=== PATIENT | male | born 1950 | race Caucasian/White ===

== ENCOUNTER 2018-08-05 12:10 | Day surgery (SDC) | payer MEDICARE, MEDICAID, SELFPAY ==
[2018-08-05] VITALS (7 sets, daily range): BP systolic 113–145; BP diastolic 72–90; PULSE 87–110; RESP 12–18; TEMP 36.3–36.7; O2SAT 100; BMI 18.1
--- NOTE | 2018-08-05 12:34 | EKG12_ITS ---
Test Reason : SB Blood Pressure : / mmHG Vent. Rate : 092 BPM Atrial Rate : 092 BPM P-R Int : 146 ms QRS Dur : 080 ms QT Int : 364 ms P-R-T Axes : 077 080 060 degrees QTc Int : 450 ms Normal sinus rhythm Normal ECG No previous ECGs available Confirmed by FAHAD PULIDO ([id number]), film editor TYRONE MARIN ([id number]) on 08/10/2018 2:59:28 PM Referred By: Maximiliano Cueto Confirmed By:FAHAD PULIDO
[2018-08-05 13:10] LABS: Hemoglobin 15.3 g/dl (13.0-16.5); Mean Corp Hgb Conc 33.3 g/gl (32-36); Mean Corpuscular Hgb 32.1 pg (27.0-32.0); Mean Corpuscular Volume 96.6 fL (80-94); Mean Platelet Vol. 9.2 fl (6.2-12.0); Platelet Count 250 K/mm3 (150-450); RBC Distribution Width CV 12.8 % (11.6-14.6); RBC Distribution Width SD 44.8 fl (35.1-43.9); Red Blood Count 4.76 M/mm3 (4.6-6.2); White Blood Count 9.1 K/mm3 (4.4-11.0)
[2018-08-05 13:12] LABS: Scan Indicated on CBC? Y/N NO
--- NOTE | 2018-08-05 15:25 | PCM.OPRPT ---
Problem List (1) Dental caries extending into pulp Status: Acute Comment: Non restorable dentition Report of Operation Date of Procedure: 08/05/18 Pre-Operative Diagnosis: Non restorable dentition Post-Operative Diagnosis: Same. Extraction Maxillary teeth and tooth 20 Surgery/Procedure Performed:: Total Maxillary Odontectomy and tooth 20 Description of Surgical Findings:: Non restorable teeth Type of Anesthesia:: General Special Medications: None Specimen's removed: Teeth, not sent to pathology Drains: none Estimated Blood Loss (mL): minimal Description of Procedure: Patient is well known to my office and a Patient of Dr. Obrien a local dentist here in [place], [place]. He suggested removal of the painful dentition and insertion of a denture. The plan is acceptable to the patient. Pre-op discussion consisted of the risk, benefits and potential complications of the procedure. A signed consent obtained. Patient taken to operation room and placed in the supine position. The appropriate anesthesia monitors were placed and the patient was given IV general anesthesia and intubated via the oral route. After airway was secured local anesthesia was administered and the upper (maxillary) dentition was removed with reflection of full gingival flaps and removal of necessary bone. Then our attention was directed at tooth 20 where it was removed in surgical fashion. The sites were irrigated then sutured in an interrupted fashion using 3-0 chromic suture. The procedure was without complications, the patient was awakened and extubated and taken to recovery room in stable condition.
== END 2018-08-05 16:48 | disposition home or self-care (01) ==
LOC: SDC 12:16 → AC 12:18
PROVIDERS: Family Provider Family Medicine; PCP Family Medicine; Visit Provider Dentist Oral and Maxillofacial Surgery
PROC: (CPT 41899; principal; 2018-08-05 13:45)
DX: K02.9 Dental caries, unspecified (principal); I10 Essential (primary) hypertension; Z79.899 Other long term (current) drug therapy
CPT/HCPCS: 41899; 85027; 93005; J7120; J2405

== ENCOUNTER 2018-08-17 13:22 | Emergency (ER) | payer MEDICARE, MEDICAID, SELFPAY ==
[2018-08-17 13:23] VITALS: BP 146/95; PULSE 93; RESP 18; TEMP 36.6; O2SAT 98; BMI 19.1
--- NOTE | 2018-08-17 13:35 | RAD_ITS ---
STUDY: X-RAY - ABDOMEN/PELVIS REASON FOR EXAM: Male, 67 years old. Constipation. History of recent dental work. TECHNIQUE: AP supine and upright views of the abdomen and pelvis. COMPARISON: None. FINDINGS: Normal visualized lung bases. There is a moderate amount of colonic fecal material. There is no demonstrated free abdominal air. The visualized liver, spleen and kidneys are grossly normal in size and morphology. Distended urinary bladder. Degenerative changes and sclerosis of the symphysis pubis. RAD/Abd Decub and/or Erect(Portabl IMPRESSION: Moderate amount of fecal material in the colon. Distended urinary bladder. Electronically Signed: Umberto Sun MD at 14:29 EDT Tel [phone], Service support ,
--- NOTE | 2018-08-17 14:14 | ED.VISSUMM ---
- ER Visit Summary Date of Service: 08/17/18 Chief Complaint: I am blocked up. History of Present Illness: The patient is a 67 M who reports difficulty having bowel movements since he had dental surgery. He was seen by Dr. Cueto. He states he had anesthesia. He is having difficulty moving his bowels. He is fluctuating. He denies nausea or vomiting. He denies fever, chills or night sweats. He denies any ocular, visual auditory symptoms. He denies any cardiovascular respiratory symptoms. He states he has had this in the past. Please read written note Physical Examination: Vital signs were noted and remarkable and elevated pressure 146/95. HEENT exam is unremarkable. Heart is regular without murmur, gallop or rub. S1 and S2 are normal. Lungs are clear to auscultation with good movement of air bilaterally. Abdomen slightly distended no tympana no tenderness. Bowel sounds are diminished. There is no CVA tenderness noted. There is no evidence of hernia. Patient has bilateral leg and feet edema. He admits he has been sitting a lot. Rectal exam was performed and the prostate is enlarged. There was no stool in the rectal vault. Test Results: Two-view x-ray of the abdomen was obtained and reveals no ossific gas pattern with increased fecal matter. Emergency Department Course and Treatment: Two-view x-ray of the abdomen to evaluate for obstruction versus ileus versus obstipation. Most likely the latter. Treatment Plan: Outpatient therapy Disposition: Discharged to home Impression: Abdominal pain secondary to obstipation status post dental surgery This note was generated with [employer] dictation software. It may contain incorrect words, spelling, and punctuation that were not noted in review of the chart prior to signing ED Disposition - Plan for ED Patient: Disposition: Home or Assisted Living Chief Complaint: Constipation Instructions: ED Constipation Referrals: Constantine Garcia MD [Primary Care Provider] - 3-5 Days if not improving Additional Instructions: Take Metamucil 3 times a day for the next week.
== END 2018-08-17 14:34 | disposition home or self-care (01) ==
PROVIDERS: Emergency Provider Emergency Medicine; Family Provider Family Medicine; PCP Family Medicine
DX: K59.00 Constipation, unspecified (principal); R10.9 Unspecified abdominal pain; Z98.818 Other dental procedure status; R60.0 Localized edema; N40.0 Benign prostatic hyperplasia without lower urinary tract symptoms; I10 Essential (primary) hypertension; Z79.899 Other long term (current) drug therapy
CPT/HCPCS: 74019; 99282

== ENCOUNTER 2018-08-18 09:34 | Inpatient (IN) | payer MEDICARE, MEDICAID, SELFPAY ==
[2018-08-18] VITALS (11 sets, daily range): BP systolic 131–182; BP diastolic 76–107; PULSE 81–132; RESP 15–20; TEMP 36.4–37.1; O2SAT 96–100; BMI 18.3; BMI 17.8
--- NOTE | 2018-08-18 10:11 | EKG12_ITS ---
Test Reason : WEAKNESS Blood Pressure : / mmHG Vent. Rate : 092 BPM Atrial Rate : 092 BPM P-R Int : 128 ms QRS Dur : 074 ms QT Int : 342 ms P-R-T Axes : 083 080 067 degrees QTc Int : 422 ms Normal sinus rhythm Normal ECG Confirmed by DEEPAK KASPER, MATEUS ([id number]), society editor TYRONE MARIN ([id number]) on 08/19/2018 1:29:00 PM Referred By: Jasmin Ramirez Confirmed By:MATEUS SOTELO MD
--- NOTE | 2018-08-18 10:12 | CT_ITS ---
STUDY: CT ABDOMEN AND PELVIS WITHOUT CONTRAST REASON FOR EXAM: Male, 67 years old. Abdominal pain RADIATION DOSAGE (If Supplied By Facility): CTDIvol = ( 6.04 ) mGy, DLP = ( 291.44 ) mGycm TECHNIQUE: Transaxial images were obtained from the dome of the diaphragm to the symphysis pubis without oral contrast, and without intravenous contrast. Sagittal and coronal images were reconstructed. Individualized dose optimization techniques were used for this CT. COMPARISON: X-ray abdomen 08/17/2018 FINDINGS: Body wall soft tissues: No acute process. Osseous structures: No acute process. Inferior chest: Small sliding hiatal hernia. Hepatobiliary: Normal. Pancreas: No acute process. Spleen: Normal. Adrenal glands: Normal. Urogenital: Grade 2 hydronephrosis bilaterally with pelvocaliectasis, without significant blunting of the calyces, without renal plethora or perinephric stranding suggesting that this is chronic. Ectasia of the ureters bilaterally. Marked distention of the urinary bladder doming into the mid abdomen, measuring up to 17 cm craniocaudal, 14.6 cm anterior-posterior, and 12.9 cm transverse, associated with enlargement of the prostate gland which is bulging into the base of the urinary bladder. The prostate gland measures up to 5.8 cm craniocaudal, 5.9 cm anterior-posterior, and 5.3 cm transverse. The overall features suggest bladder obstruction. Pelvic floor and sidewalls and retroperitoneum: No mass or adenopathy. Vasculature: No acute process. Stomach: No acute process. Small bowel and mesentery: No acute process. Large bowel: The appendix is not clearly seen. Unremarkable large bowel and rectum. Free fluid or free air: None. CT/Abdomen/Pelvis without Cont IMPRESSION: Evidence of bladder outlet partial obstruction with marked distention of the urinary bladder, bilateral hydroureter and hydronephrosis. Associated with prostatomegaly. Electronically Signed: Remi Shaw, at 12:08 EDT Tel , Service support ,
[2018-08-18 10:20] LABS: Mucous, Urine 0 SEEN /hpf (<or=2+); Squamous Epithelial Cells - UA 0 SEEN /hpf (0-5)
[2018-08-18 10:25] LABS: Color, Urine Yellow (Yellow); Glucose, Dipstick Normal (Normal); Ketone-Dipstick Negative (Negative); Leukocyte Esterase-Dipstick 100 /ul (Negative); Nitrite-Dipstick Negative (Negative); Occult Blood-Urine 250 /ul (Negative); Protein-Dipstick 30 mg/dl (Negative); Specific Gravity, Urine 1.015 (1.002-1.030); Urine Bilirubin Dipstick Negative (Negative); Urine Clarity Sl. Cloudy (Clear); Urine Urobilinogen Normal (Normal)
[2018-08-18 10:36] LABS: Bacteria 1+ /hpf (None Seen); Red Blood Cells-Urine 25-50 SEEN /hpf (0-5); White Blood Cells 10-25 SEEN /hpf (0-5)
[2018-08-18 11:06] LABS: Absolute Lymphocyte Count 0.25 X10^3/ul (0.83-4.51); Absolute Neutrophil Count 10.6 X10^3/uL (2.0-7.7); Hematocrit 41.2 % (40-54); Lymphocyte # 0.25 X10^3/ul (4.0); Lymphocyte % 2.2 % (19-41); Mean Corpuscular Hgb 31.6 pg (27.0-32.0); Monocyte# 0.34 X10^3/uL; Neutrophil # 10.62 X10^3/uL (2.7-7.7); Neutrophil % 94.7 % (47-70); Platelet Count 265 K/mm3 (150-450); RBC Distribution Width CV 13.3 % (11.6-14.6); RBC Distribution Width SD 45.2 fl (35.1-43.9); Red Blood Count 4.43 M/mm3 (4.6-6.2); White Blood Count 11.2 K/mm3 (4.4-11.0)
[2018-08-18 11:07] LABS: Differential Indicated SCAN CRITERIA MET; POSITIVE COUNT NO; POSITIVE DIFFERENTIAL YES; POSITIVE MORPHOLOGY NO
[2018-08-18 11:24] LABS: ALB/GLOB Ratio 0.7 RATIO (0.9-2.4); AST(SGOT) 11 U/L (15-37); Alanine Aminotransfer ALT/SGPT 27 U/L (16-61); Albumin, Serum 3.1 g/dL (3.2-5.0); Alkaline Phosphatase 89 U/L (45-117); Anion Gap 22 (5-15); BUN 146 mg/dL (7-18); BUN/Creat Ratio 6.2 RATIO (10-20); Calcium,Total 9.3 mg/dL (8.5-10.1); Chloride 106 mmol/L (98-107); EST Glomerular Filtration Rate 2 mL/min (>60); Est Glom Filt Rate - Afr Amer 3 mL/min (>60); Estimated Creatinine Clearance 2.08 ml/min; Globulin 4.6 g/dL (2.2-4.2); Glucose 105 mg/dL (74-106); Potassium 6.4 mmol/L (3.5-5.1); Protein, Total 7.7 g/dL (6.4-8.2); Sodium Level 141 mmol/L (136-145)
--- NOTE | 2018-08-18 11:24 | ED.RN ---
LAB RESULTED POTASSIUM 6.4, BUN 146, CREAT 23.6, PHYSICIAN NOTIFIED
[2018-08-18] MEDS: 0.9% Normal Saline 1,000 ML 150 ML IV (12:24)
[2018-08-18] MEDS: Ceftriaxone 1 GM/50 ML BAG IV (12:24)
--- NOTE | 2018-08-18 13:10 | NURSING ---
PCU RIAN PAINTSIL
[2018-08-18] MEDS: Albuterol 2.5 MG/3 ML VIAL.NEB. INHALATION (13:22)
[2018-08-18] MEDS: Dextrose 50%-Water 25 GM/50 ML DISP.SYRIN IV (13:29)
[2018-08-18] MEDS: Sodium Polystyrene Sulfonate 15 GM/60 ML UDC 30 GM PO (13:29)
[2018-08-18] MEDS: Insulin Lispro 10 UNIT in Syringe 0 ML 3 UNIT IV (13:31)
[2018-08-18] MEDS: Calcium Gluconate 1 GM/10 ML Vial IV (13:34)
--- NOTE | 2018-08-18 14:46 | HP.PCM_ITS ---
Problem List (1) Acute kidney failure Status: Acute Qualifiers: Acute renal failure type: unspecified Qualified Code(s): N17.9 - Acute kidney failure, unspecified (2) Hydronephrosis Status: Acute Qualifiers: Hydronephrosis type: unspecified Qualified Code(s): N13.30 - Unspecified hydronephrosis (3) Hypertension Status: Chronic Qualifiers: Hypertension type: essential hypertension Qualified Code(s): I10 - Essential (primary) hypertension (4) Hyperkalemia Status: Acute History of Present Illness Date of Admission: 08/18/18 Chief Complaint: Feeling of unwell - 1 day The patient is a 67 year old M past medical history of hypertension, recently had dental work done on 08/05/2018. And denied any past medical history of urinary or prostate problems. He admits that after his dental extraction procedure, he has not been drinking much, been feeling weak, been eating only soft diet. Patient felt very unwell this morning, felt very weak and had a fall and was brought to the ED by a friend. Does not the ED show a temperature of 90 7.5F, heart rate of 96, blood pressure is 160/91, respiratory rate 16, SPO2 87% Recent blood work showed RBC count 11.2, Hb 14.2, platelet 265, sodium 141, potassium 6.4, bicarbonate 13, BUN of 46, creatinine 23.60, UA shows slightly cloudy urine, occult blood 250, leukocyte esterase 100, RBC count 10-25, CT scan of the abdomen and pelvis shows evidence of bladder outlet partial obstruction with market distention urinary bladder, bilateral hydroureter, hydronephrosis, associated prostatomegaly Past Medical History Past Medical History (Chronic Problems): Chronic Problems Hypertension (Chronic) Allergies Penicillins Allergy (Verified 08/18/18 09:36) Unknown Home Medications: Ambulatory Orders Medication Instructions Recorded Lisinopril [Zestril] 5 mg PO LUNCH 07/29/18 Surgical History: - - recent Dental procedure Psychiatric History: Anxiety Lives: Alone Smoking Status: Former smoker - *Family History Maternal History Items: No pertinent history Paternal History Items: Unknown Review of Systems Constitutional: Reports: Weakness. Denies: Anorexia, Chills, Fever, Weight Change Eyes: Denies: Blurred vision, Cataracts, Conjunctivae Inflammation HEENT: Denies: Head Aches, Hearing Changes, Sinus Congestion, Sinus Drainage Cardiovascular: Reports: Light Headedness. Denies: Chest Pain, Claudication, Orthopnea, Palpitations Respiratory: Reports: Shortness of breath at rest, Shortness of breath upon exertion. Denies: Cough, Sputum production Gastrointestinal: Reports: Abdominal Pain. Denies: Constipation, Hematemesis, Hematochezia, Nausea, Vomiting Genitourinary: Reports: Hesitancy, Retention. Denies: Dysuria, Frequency, Incontinence, Urgency Musculoskeletal: Denies: Joint Pain, Joint stiffness, Joint swelling, Joint Tenderness Skin: Denies: Rash, Wounds Neurological: Denies: Difficulty swallowing, Focal weakness, Numbness, Tingling Psychiatric: Denies: Anxiety, Depression, Homicidal Ideations, Suicidal Ideations Hematologic/ Lymphatic: Denies: Easy Bruising, Easy Bleeding VTE Information - Inpt Only VTE Present on Admission: No VTE Pharm Prophylaxis ordered?: Yes Patient Problems: Active and Suspected Problems Urinary retention due to benign prostatic hyperplasia (Acute) Acute kidney failure (Acute) Hydronephrosis (Acute) Hyperkalemia (Acute) - Physical Exam General: Alert, Oriented x3, Cooperative, No apparent distress, - - cachetic HEENT: Atraumatic, PERRLA, EOMI, Normocephalic Oral: Moist Mucosa Neck: Supple, No JVD, Negative Carotid Bruits Lungs: Clear to auscultation, Normal air movement Cardiovascular: Regular rate, Regular Rhythm, Normal S1, Normal S2, No murmurs Abdomen: Bowel Sounds Present, Soft, Non Tender, Non-Distended, No Hepato- splenomegaly Extremities: No edema Skin: No rashes, No breakdown Musculoskeletal: No Tenderness to Palpation of Joints or Extremities Lymphatic: No Cervical, Supraclavicular, or Inguinal Adenopathy Neurological: Cranial nerves II-XII grossly intact, Neuro grossly intact Psych/Mental Status: Normal Affect, Appropriate Vital Signs Temp Pulse Resp BP Pulse Ox 98.5 F 109 H 16 164/99 H 98 08/18/18 14:00 08/18/18 14:00 08/18/18 14:00 08/18/18 14:00 08/18/18 14:00 Oxygen Delivery Method Room Air Weight: 48.625 kg Body Mass Index (BMI) 17.8 Assessment/Plan All Active Problems Dental caries extending into pulp (Acute) Urinary retention due to benign prostatic hyperplasia (Acute) Acute kidney failure (Acute) Hydronephrosis (Acute) Hyperkalemia (Acute) 67 year old M past medical history of hypertension, recently had dental work done on 08/05/2018. And denied any past medical history of urinary or prostate problems. He admits that after his dental extraction procedure, he has not been drinking much, been feeling weak, been eating only soft diet. Patient felt very unwell this morning, felt very weak and had a fall and was brought to the ED by a friend. 1. Acute kidney injury, post renal, likely related to bladder outlet obstruction, poor p.o. intake, continued use of NORA inhibitor unknown kidney baseline, urology and nephrology consulted, on IV fluids, status post Nixon catheter, initial urine was slightly blood tinged, will continue to monitor urine output, renal diet 2. Hyperkalemia secondary to RIAN, EKG showed peaked T waves, status post calcium gluconate, insulin, Kayexalate, repeat potassium is 4.0, trend BMP in a.m. 3. Hypertension, patient was on NORA inhibitor, lisinopril held, will continue to monitor vitals closely, hydralazine prn 4. Leukocytosis, likely reactive, no source of infection, will trend in a.m. 5. Anxiety disorder, not on home medication, continue to monitor 6. Severe protein energy malnutrition, dietitian consulted, on supplements 7. DVT prophylaxis with heparin subcu Code Visit Inpatient E&M: 52141 Init Hosp L3
--- NOTE | 2018-08-18 14:50 | PCM.CONS.R ---
Consultation - Renal 08/18/18 PCP/ Referring MD: Requesting physician: Jasmin Ramirez Primary care physician: Constantine Garcia Reason for Consultation:: RIAN, hyperkalemia - History of Present Illness History of Present Illness: The patient is a 67 year old M who lives alone admitted for weakness, fell at home this morning. He was found to be in renal failure with hyperkalemia. Potassium was 6.4 given medications in ER. Creatinine 23 with BUN 146. He has nausea, no vomiting. Appetite has been decreased after his upper teeth were extracted about 2 weeks ago with anesthesia. He developed back pain past 4 days and noticed decreased urine output. He is not aware of kidney problems or prostate issues. He admits to taking 1 or 2 aleve for back pain. He is on lisinopril for hypertension. He has not seen his PCP for a while. He admits to leg swelling past 4 days. Denied fever, chills. No history of heart disease, diabetes, stroke. CT abdomen in ER revealed bilateral hydronephrosis and hydroureter with distended bladder and BPH. Espinosa catheter inserted with blood tinged urine that cleared. - Allergies Allergies: Allergies Penicillins Allergy (Verified 08/18/18 09:36) Unknown - Current Medications Current Medications: Current Medications Acetaminophen (Tylenol) 650 mg PO Q6H PRN PRN PRN Reason: Mild Pain (1-3)/Temp > 100.7 F Bisacodyl (Dulcolax) 10 mg PO X1 ONE Stop: 08/18/18 14:47 Heparin Sodium (Porcine) (Heparin Na) 5,000 unit SC Q12 QUENTIN Sodium Chloride () 1,000 mls @ 75 mls/hr IV .[id number] QUENTIN Magnesium Hydroxide (Milk Of Magnesia) 30 ml PO DAILY PRN PRN Reason: Constipation - Past Surgical History Surgical History: no surgical history - Social History Marital Status: Single Smoking Status: Former smoker Review of Systems Constitutional: Reports: Anorexia, Weakness - recent fall. Denies: Chills, Fever Eyes: Denies: Blurred vision HEENT: Denies: Head Aches Cardiovascular: Denies: Chest Pain, Edema, Syncope Respiratory: Denies: Cough, Shortness of Breath Gastrointestinal: Reports: Nausea. Denies: Abdominal Pain, Constipation, Diarrhea, Vomiting Genitourinary: Reports: Retention. Denies: Dysuria Skin: Denies: Rash Neurological: Reports: Balance problems, - - weakness, fall Psychiatric: Denies: Anxiety, Depression Hematologic/ Lymphatic: Denies: Anemia, Hx of blood clot - Physical Exam General: Alert, Oriented x3, Cooperative, No apparent distress HEENT: Atraumatic, PERRLA, EOMI Oral: Dry Mucosa Neck: Supple, No JVD Lungs: Clear to auscultation Cardiovascular: Regular rate, No rub noted Abdomen: Bowel Sounds Present, Soft, Non Tender, Non-Distended Extremities: Edema Skin: No rashes Musculoskeletal: Muscle Wasting Neurological: - - mild tremor, shaking Psych/Mental Status: Normal Affect, Appropriate, - - appears scared, Alert and oriented to time, place, person, mood and affect Vital Signs Temp Pulse Resp BP Pulse Ox 98.5 F 109 H 16 164/99 H 98 08/18/18 14:00 08/18/18 14:00 08/18/18 14:00 08/18/18 14:00 08/18/18 14:00 Oxygen Delivery Method Room Air Weight: 48.625 kg Body Mass Index (BMI) 17.8 Clinical Impression(s) from Imaging Studies Abdomen/Pelvis CT 08/18/18 10:12 IMPRESSION: Evidence of bladder outlet partial obstruction with marked distention of the urinary bladder, bilateral hydroureter and hydronephrosis. Associated with prostatomegaly. Electronically Signed: Remi Shaw, at 12:08 EDT Tel , Service support , Assessment/Plan All Active Problems Dental caries extending into pulp (Acute) 1. RIAN due to urinary retention obstruction from BPH. Good urine output after espinosa inserted. Appears dry. Continue with iv fluids. Will check [facility] records to see what his baseline creatinine was. Creatinine 23 with BUN 146. Will see if how he does with espinosa insertion. Hold dialysis for now. 2. Hyperkalemia due to renal failure, NSAID, lisinopril. Stop ACEI. Add low K diet. K 6.4 3. Recent upper teeth extraction with anesthesia that may have contributed to urinary retention symptoms. 4. HTN monitor 5. Add protein supplements, denture soft diet with recent extraction of teeth. dw hospitalist
[2018-08-18] MEDS: 0.9% Normal Saline 1,000 ML 75 ML IV (15:25)
--- NOTE | 2018-08-18 15:51 | ED.VISSUMM ---
- ER Visit Summary Date of Service: 08/18/18 Chief Complaint: Weakness History of Present Illness: The patient is a 67 M who states that he feels very weak. 13 days ago he had dental extraction which is top teeth were pulled. States that since that time he has had a lack of appetite. No vomiting. States he has been drinking fruit juices try to help with the constipation he has been having. He has had some mashed potatoes but otherwise no significant solid foods. Patient states his legs seem to be swelling. He fell this morning. He tells me he was seen yesterday in the emergency room had a that showed some constipation was advised to take MiraLAX. He also states that he has been having some bilateral back pain that seems to be worse when he lays down but seems to get better when he moves. Physical Examination: Afebrile vital signs stable Gen: Well-nourished well-developed Head: Normocephalic atraumatic Eyes: Perrl EOMI ENT: TMs clear no rhinorrhea dry mucous membranes Neck: Supple no lymphadenopathy no JVD nontender CVS: Regular rate rhythm no murmurs normal S1-S2 Respiratory: No distress clear to auscultation bilaterally chest nontender Abdomen: Patient has a firm mass like abdomen mostly in the midline that goes above his umbilicus normal bowel sounds Back: Nontender Extremity: Nontender no edema Skin: Normal color no rash Neuro: alert orientated ?3 CN II-XII intact normal strength sensation reflexes gait cerebellar Psych: Normal affect normal mood Test Results: EKG shows a sinus rhythm at a rate of 92 with T waves that seem peaked compared to prior. Creatinine is 23.6 with BUN of 146. Potassium 6.4. CT abdomen pelvis demonstrated bilateral hydronephrosis hydroureter and distended bladder. Emergency Department Course and Treatment: Nixon catheter was placed with greater than 1500 cc removed. Nursing informed me that when they placed the Nixon they did meet some resistance at the level of the prostate but were able to pass it without much difficulty. He received IV fluids. He received hyperkalemia medications. Plan is admission. Impression: 1. Acute urinary retention 2. Postobstructive acute renal failure 3. Dehydration 4. Hyperkalemia This note was generated with [employer] dictation software. It may contain incorrect words, spelling, and punctuation that were not noted in review of the chart prior to signing ED Disposition - Plan for ED Patient: Chief Complaint: Weakness
--- NOTE | 2018-08-18 16:01 | PCM.CONS.U ---
Problem List (1) Urinary retention due to benign prostatic hyperplasia Status: Acute Reason for Consult Date of Consultation: 08/18/18 Reason for Consultation: urinary retention and bph History of Present Illness: The patient is a 67 year old male who presented with b/l hydro, distended bladder and retention espinosa in place and urine draining well, had dental procedure and states that after anesthesia had a hard time voiding, denies bph symptoms prior to that. Past Medical History Allergies Penicillins Allergy (Verified 08/18/18 09:36) Unknown Home Medications: Ambulatory Orders Medication Instructions Recorded Lisinopril [Zestril] 5 mg PO LUNCH 07/29/18 Surgical History: no surgical history Psychiatric History: No pertinent psych hx Smoking Status: Former smoker Tobacco Use: Non-smoker Alcohol: None Drugs: None - *Family History Maternal History Items: No pertinent history Review of Systems Constitutional: Denies: Chills, Fever, Weight Change HEENT: Denies: Head Aches, Sinus Congestion, Sinus Drainage Cardiovascular: Denies: Chest Pain, Palpitations Respiratory: Denies: Cough, Shortness of breath at rest, Sputum production Gastrointestinal: Denies: Abdominal Pain, Nausea, Vomiting Genitourinary: Reports: Dysuria, Nocturia, Retention Musculoskeletal: Denies: Joint Pain, Joint Tenderness Skin: Denies: Rash, Wounds Neurological: Denies: Numbness, Tingling, Focal weakness Psychiatric: Denies: Anxiety, Depression, Homicidal Ideations, Suicidal Ideations Hematologic/ Lymphatic: Denies: Easy Bruising, Easy Bleeding Physical Exam - Physical Exam Vital Signs Temp 98.5 F 08/18/18 14:00 Pulse 106 H 08/18/18 14:49 Resp 16 08/18/18 14:00 BP 164/99 H 08/18/18 14:00 Pulse Ox 98 08/18/18 14:00 Intake & Output 08/16/18 08/17/18 08/18/18 23:59 23:59 23:59 Weight: 48.625 kg General: Alert, Oriented x3 HEENT: Atraumatic Oral: Moist Mucosa Neck: Supple Lungs: Normal air movement Cardiovascular: Regular rate Abdomen: Bowel Sounds Present, Soft Assessment/Plan All Active Problems Dental caries extending into pulp (Acute) Urinary retention due to benign prostatic hyperplasia (Acute) retention of urine will start him on flomax and proscar plan i think he will need to go home with espinosa he will then need an appt with me for follow and further work up of his BPH.
[2018-08-18] MEDS: Bisacodyl 5 MG Tablet 10 MG PO (16:35)
[2018-08-18 17:14] LABS: Albumin, Serum 3.3 g/dL (3.2-5.0); BUN 105 mg/dL (7-18); BUN/Creat Ratio 8.3 RATIO (10-20); Calcium,Total 10.2 mg/dL (8.5-10.1); Chloride 116 mmol/L (98-107); EST Glomerular Filtration Rate 4 mL/min (>60); Est Glom Filt Rate - Afr Amer 5 mL/min (>60); Estimated Creatinine Clearance 3.81 ml/min; Glucose 87 mg/dL (74-106); Phosphorus 6.2 mg/dL (2.5-4.9); Sodium Level 148 mmol/L (136-145)
[2018-08-18] MEDS: Heparin Injection (Vial) 5,000 UNIT/ML VIAL 5000 UNIT SC (20:57)
[2018-08-18] MEDS: 0.45% Normal Saline 1,000 ML 75 ML IV (22:00)
[2018-08-19] VITALS (12 sets, daily range): BP systolic 129–155; BP diastolic 64–92; PULSE 78–114; RESP 16–18; TEMP 36.8–36.9; O2SAT 97–98
[2018-08-19 07:04] LABS: Albumin, Serum 2.9 g/dL (3.2-5.0); BUN 42 mg/dL (7-18); BUN/Creat Ratio 16.5 RATIO (10-20); Calcium,Total 9.5 mg/dL (8.5-10.1); Chloride 124 mmol/L (98-107); Creatinine, Serum 2.55 mg/dL (0.70-1.30); EST Glomerular Filtration Rate 27 mL/min (>60); Est Glom Filt Rate - Afr Amer 32 mL/min (>60); Estimated Creatinine Clearance 18.76 ml/min; Glucose 111 mg/dL (74-106); Potassium 3.9 mmol/L (3.5-5.1); Sodium Level 156 mmol/L (136-145)
[2018-08-19] MEDS: Acetaminophen 325 MG Tablet 650 MG PO ×2 (08:14→18:24)
--- NOTE | 2018-08-19 08:49 | PCM.PN.REN ---
Patient Problems: Active and Suspected Problems Urinary retention due to benign prostatic hyperplasia (Acute) Acute kidney failure (Acute) Hydronephrosis (Acute) Hyperkalemia (Acute) Subjective: Renal function continues to improve with good output with Espinosa catheter. He continues to complain of low back pain. Potassium level improved. Sodium level elevated switched to D5 water. No shortness of breath or nausea, vomiting. - Physical Exam General: Alert, Oriented x3, Cooperative, No apparent distress Lungs: Clear to auscultation Cardiovascular: Regular rate Abdomen: Bowel Sounds Present, Soft, Non Tender, Non-Distended Skin: No rashes Musculoskeletal: Muscle Wasting, - - Low back pain Psych/Mental Status: Normal Affect, Appropriate, Alert and oriented to time, place, person, mood and affect Vital Signs Temp Pulse Resp BP Pulse Ox 98.4 F 114 H 18 145/84 H 97 08/19/18 02:50 08/19/18 07:25 08/19/18 02:50 08/19/18 02:50 08/19/18 02:50 Oxygen Delivery Method Room Air Weight: 48.5 kg Body Mass Index (BMI) 17.8 Intake and Output for Last 24 Hours 08/17/18 08/18/18 08/19/18 23:59 23:59 23:59 Intake Total 873 / 873 730 / 730 Output Total 2600 / 2600 1100 / 1100 Balance -1727 / -1727 -370 / -370 Laboratory Tests Past 24 Hrs 08/18/18 08/19/18 16:18 06:22 Sodium 148 H 156 H Potassium 4.0 3.9 Chloride 116 H 124 H Carbon Dioxide 14.0 L 24.0 BUN 105 H* 42 H Creatinine 12.60 H* 2.55 H Estim Creat Clear Calc 3.81 18.76 Est GFR (MDRD) Af Amer 5 L 32 L Est GFR (MDRD) Non-Af 4 L 27 L BUN/Creatinine Ratio 8.3 L 16.5 Glucose 87 111 H Calcium 10.2 H 9.5 Phosphorus 6.2 H 3.0 Albumin 3.3 2.9 L Medical Necessity - Tobacco Use Smoking Status: Former smoker Tobacco Use: Non-smoker Assessment/Plan All Active Problems Dental caries extending into pulp (Acute) Urinary retention due to benign prostatic hyperplasia (Acute) Acute kidney failure (Acute) Hydronephrosis (Acute) Hyperkalemia (Acute) 1. RIAN due to urinary retention obstruction from BPH. Good urine output after espinosa inserted. Appears dry. Continue with iv fluids. [facility] records shows serum creatinine of 1.0 in May 2017. Creatinine improved from 23 to 2.55 today. 2. Hyperkalemia due to renal failure, NSAID, lisinopril resolved 3. s/p upper teeth extraction with anesthesia that may have contributed to urinary retention symptoms. 4. HTN monitor 5. Hypernatremia agree with free water
[2018-08-19] MEDS: Heparin Injection (Vial) 5,000 UNIT/ML VIAL 5000 UNIT SC ×2 (10:12→20:47)
--- NOTE | 2018-08-19 12:01 | PCM.PN.HOSP ---
Patient Problems: Active and Suspected Problems Urinary retention due to benign prostatic hyperplasia (Acute) Acute kidney failure (Acute) Hydronephrosis (Acute) Hyperkalemia (Acute) Subjective: Patient was seen and examined. He denied any new complaints. Denied dizziness or palpitation. He has been diuresing a lot. Objective: Physical Exam General: Alert, Oriented x3, Cooperative, No apparent distress, - - cachetic HEENT: Atraumatic, PERRLA, EOMI, Normocephalic Oral: Moist Mucosa Neck: Supple, No JVD, Negative Carotid Bruits Lungs: Clear to auscultation, Normal air movement Cardiovascular: Regular rate, Regular Rhythm, Normal S1, Normal S2, No murmurs Abdomen: Bowel Sounds Present, Soft, Non Tender, Non-Distended, No Hepato-splenomegaly, espinosa catheter in, ava urine Extremities: No edema Skin: No rashes, No breakdown Musculoskeletal: No Tenderness to Palpation of Joints or Extremities Lymphatic: No Cervical, Supraclavicular, or Inguinal Adenopathy Neurological: Cranial nerves II-XII grossly intact, Neuro grossly intact Psych/Mental Status: Normal Affect, Appropriate Vitals/I&O's: Vital Signs Temp Pulse Resp BP Pulse Ox 98.3 F 91 16 155/92 H 97 08/19/18 08:45 08/19/18 11:01 08/19/18 09:18 08/19/18 08:45 08/19/18 09:18 Oxygen Delivery Method Room Air Weight: 48.5 kg Body Mass Index (BMI) 17.8 Intake and Output for Last 24 Hours 08/17/18 08/18/18 08/19/18 23:59 23:59 23:59 Intake Total 873 / 873 1681 / 1681 Output Total 2600 / 2600 1550 / 1550 Balance -1727 / -1727 131 / 131 Laboratory Results 08/18/18 16:18: Sodium 148 H, Potassium 4.0, Chloride 116 H, Carbon Dioxide 14.0 L, BUN 105 H*, Creatinine 12.60 H*, Estim Creat Clear Calc 3.81, Est GFR (MDRD) Af Amer 5 L, Est GFR (MDRD) Non-Af 4 L, BUN/Creatinine Ratio 8.3 L, Glucose 87, Calcium 10.2 H, Phosphorus 6.2 H, Albumin 3.3 08/19/18 06:22: Sodium 156 H, Potassium 3.9, Chloride 124 H, Carbon Dioxide 24.0, BUN 42 H, Creatinine 2.55 H, Estim Creat Clear Calc 18.76, Est GFR (MDRD) Af Amer 32 L, Est GFR (MDRD) Non-Af 27 L, BUN/Creatinine Ratio 16.5, Glucose 111 H, Calcium 9.5, Phosphorus 3.0, Albumin 2.9 L Current Medications Acetaminophen (Tylenol) 650 mg PO Q6H PRN PRN PRN Reason: Mild Pain (1-3)/Temp > 100.7 F Last Admin: 08/19/18 08:14 Dose: 650 mg Heparin Sodium (Porcine) (Heparin Na) 5,000 unit SC Q12 [facility] Last Admin: 08/19/18 10:12 Dose: 5,000 unit Dextrose () 1,000 mls @ 75 mls/hr IV .[id number] [facility] Last Admin: 08/19/18 08:11 Dose: 75 mls/hr Labetalol HCl (Trandate) 10 mg IV Q6H PRN PRN PRN Reason: SBP greater than 160 Magnesium Hydroxide (Milk Of Magnesia) 30 ml PO DAILY PRN PRN Reason: Constipation Nutritional Formula (Lactose Free) (Ensure Clear) 120 ml PO 4X/DAY [facility] Last Admin: 08/19/18 10:15 Dose: Not Given Sodium Chloride () 5 - 30 ml IV UD PRN PRN Reason: SALINE FLUSH Medical Necessity - Tobacco Use Smoking Status: Former smoker Tobacco Use: Non-smoker Assessment/Plan All Active Problems Dental caries extending into pulp (Acute) Urinary retention due to benign prostatic hyperplasia (Acute) Acute kidney failure (Acute) Hydronephrosis (Acute) Hyperkalemia (Acute) 67 year old M with past medical history of hypertension, recently had dental work done on 08/05/2018 comes in feeling unwell. 1. Acute kidney injury, post renal, secondary to bladder outlet obstruction, poor p.o. intake, continued use of NORA inhibitor, unknown kidney baseline, Status post Espinosa catheter, creatinine improved remarkably. Urology and nephrology consulted, Remains on IV fluids, remains on IV fluids, trend BMP in a.m. 2. Hyperkalemia secondary to RIAN. EKG showed peaked T waves, status post calcium gluconate, insulin, Kayexalate, resolved 3. Hypernatremia, secondary to hydration and diuresis, started on D5 water, repeat BMP later in the afternoon, then in the a.m. 4. Hypertension,slightly elevated, was on NORA inhibitor, lisinopril held, Will start on amlodipine 5mg po daily, will continue to monitor BP 5. Leukocytosis, likely reactive, no source of infection, will trend 6. Anxiety disorder, not on home medication, continue to monitor 7. Severe protein energy malnutrition, dietitian consulted, on supplements 8. DVT prophylaxis with heparin subcu Code Visit Inpatient E&M: 41537 Subs Hosp L2
--- NOTE | 2018-08-19 12:15 | PN_ITS ---
Patient Problems: Active and Suspected Problems Urinary retention due to benign prostatic hyperplasia (Acute) Acute kidney failure (Acute) Hydronephrosis (Acute) Hyperkalemia (Acute) Subjective: Patient was seen and examined. He denied any new complaints. Denied dizziness or palpitation. He has been diuresing a lot. Objective: Physical Exam General: Alert, Oriented x3, Cooperative, No apparent distress, - - cachetic HEENT: Atraumatic, PERRLA, EOMI, Normocephalic Oral: Moist Mucosa Neck: Supple, No JVD, Negative Carotid Bruits Lungs: Clear to auscultation, Normal air movement Cardiovascular: Regular rate, Regular Rhythm, Normal S1, Normal S2, No murmurs Abdomen: Bowel Sounds Present, Soft, Non Tender, Non-Distended, No Hepato- splenomegaly, espinosa catheter in, ava urine Extremities: No edema Skin: No rashes, No breakdown Musculoskeletal: No Tenderness to Palpation of Joints or Extremities Lymphatic: No Cervical, Supraclavicular, or Inguinal Adenopathy Neurological: Cranial nerves II-XII grossly intact, Neuro grossly intact Psych/Mental Status: Normal Affect, Appropriate Vitals/I&O's: Vital Signs Temp Pulse Resp BP Pulse Ox 98.3 F 91 16 155/92 H 97 08/19/18 08:45 08/19/18 11:01 08/19/18 09:18 08/19/18 08:45 08/19/18 09:18 Oxygen Delivery Method Room Air Weight: 48.5 kg Body Mass Index (BMI) 17.8 Intake and Output for Last 24 Hours 08/17/18 08/18/18 08/19/18 23:59 23:59 23:59 Intake Total 873 / 873 1681 / 1681 Output Total 2600 / 2600 1550 / 1550 Balance -1727 / -1727 131 / 131 Laboratory Results 08/18/18 16:18: Sodium 148 H, Potassium 4.0, Chloride 116 H, Carbon Dioxide 14.0 L, BUN 105 H*, Creatinine 12.60 H*, Estim Creat Clear Calc 3.81, Est GFR ( MDRD) Af Amer 5 L, Est GFR (MDRD) Non-Af 4 L, BUN/Creatinine Ratio 8.3 L, Glucose 87, Calcium 10.2 H, Phosphorus 6.2 H, Albumin 3.3 08/19/18 06:22: Sodium 156 H, Potassium 3.9, Chloride 124 H, Carbon Dioxide 24.0 , BUN 42 H, Creatinine 2.55 H, Estim Creat Clear Calc 18.76, Est GFR (MDRD) Af Amer 32 L, Est GFR (MDRD) Non-Af 27 L, BUN/Creatinine Ratio 16.5, Glucose 111 H , Calcium 9.5, Phosphorus 3.0, Albumin 2.9 L Current Medications Acetaminophen (Tylenol) 650 mg PO Q6H PRN PRN PRN Reason: Mild Pain (1-3)/Temp > 100.7 F Last Admin: 08/19/18 08:14 Dose: 650 mg Heparin Sodium (Porcine) (Heparin Na) 5,000 unit SC Q12 [facility] Last Admin: 08/19/18 10:12 Dose: 5,000 unit Dextrose () 1,000 mls @ 75 mls/hr IV .[id number] [facility] Last Admin: 08/19/18 08:11 Dose: 75 mls/hr Labetalol HCl (Trandate) 10 mg IV Q6H PRN PRN PRN Reason: SBP greater than 160 Magnesium Hydroxide (Milk Of Magnesia) 30 ml PO DAILY PRN PRN Reason: Constipation Nutritional Formula (Lactose Free) (Ensure Clear) 120 ml PO 4X/DAY [facility] Last Admin: 08/19/18 10:15 Dose: Not Given Sodium Chloride () 5 - 30 ml IV UD PRN PRN Reason: SALINE FLUSH Medical Necessity - Tobacco Use Smoking Status: Former smoker Tobacco Use: Non-smoker Assessment/Plan All Active Problems Dental caries extending into pulp (Acute) Urinary retention due to benign prostatic hyperplasia (Acute) Acute kidney failure (Acute) Hydronephrosis (Acute) Hyperkalemia (Acute) 67 year old M with past medical history of hypertension, recently had dental work done on 08/05/2018 comes in feeling unwell. 1. Acute kidney injury, post renal, secondary to bladder outlet obstruction, poor p.o. intake, continued use of NORA inhibitor, unknown kidney baseline, Status post Espinosa catheter, creatinine improved remarkably. Urology and nephrology consulted, Remains on IV fluids, remains on IV fluids, trend BMP in a.m. 2. Hyperkalemia secondary to RIAN. EKG showed peaked T waves, status post calcium gluconate, insulin, Kayexalate, resolved 3. Hypernatremia, secondary to hydration and diuresis, started on D5 water, repeat BMP later in the afternoon, then in the a.m. 4. Hypertension,slightly elevated, was on NORA inhibitor, lisinopril held, Will start on amlodipine 5mg po daily, will continue to monitor BP 5. Leukocytosis, likely reactive, no source of infection, will trend 6. Anxiety disorder, not on home medication, continue to monitor 7. Severe protein energy malnutrition, dietitian consulted, on supplements 8. DVT prophylaxis with heparin subcu Code Visit Inpatient E&M: 61395 Subs Hosp L2
--- NOTE | 2018-08-19 12:20 | CASEMGMT ---
Face to Face with patient for initial transition planning/care coordination assessment. RN JULIET introduced self and role at [facility], pt voices understanding and consents to assessment at this time. Pt is sitting up in bed in no distress at this time. Pt is A/Ox4 at this time and answers most questions appropriately at this time. Pt's friend, Veronica, is at bedside during assessment. Care providers, pharmacy, and demographics verified. See attached link. Pt states he would like to know who is in-network for his insurance at this time and would like to go to a SNF for rehab. Referral to [facility], voices understanding. Advised pt to ask for CM if any further questions/concerns/needs arise, voices understanding. PLAN: SNF [facility]
[2018-08-19] MEDS: amLODIPine 5 MG Tablet PO (13:09)
--- NOTE | 2018-08-19 13:14 | CASEMGMT ---
Per SAMUEL Delgado, referral needs sent to [facility]. Referral sent to Geraldine. Geraldine called and inquired about PT/OT notes, informed her that patient has no notes in yet. Geraldine said she would need therapy notes before saying whether facility could accept patient or not. SAMUEL Delgado notified and will contact therapy. Dunia Cai LPN Clinical Support
--- NOTE | 2018-08-19 16:43 | CASEMGMT ---
Social Work PCU Received call from Neisha at [facility]. Patient can be accepted and precert has been started. Therapy notes were sent by RADHA Delgado earlier this date. Plan: Pending placement at [facility] once precert is obtained. -RADHA Mcdermott, PIPING BLOCKER
[2018-08-19 18:44] LABS: Anion Gap 7 (5-15); BUN 22 mg/dL (7-18); Calcium,Total 8.6 mg/dL (8.5-10.1); Chloride 111 mmol/L (98-107); Creatinine, Serum 1.22 mg/dL (0.70-1.30); EST Glomerular Filtration Rate 62 mL/min (>60); Est Glom Filt Rate - Afr Amer 76 mL/min (>60); Glucose 115 mg/dL (74-106); Potassium 3.1 mmol/L (3.5-5.1); Sodium Level 145 mmol/L (136-145)
[2018-08-19] MEDS: 0.45% Normal Saline 1,000 ML 50 ML IV (20:47)
[2018-08-20] VITALS (12 sets, daily range): BP systolic 124–141; BP diastolic 56–69; PULSE 63–94; RESP 16; TEMP 36.9–37.6; O2SAT 95–98
[2018-08-20 06:12] LABS: Absolute Neutrophil Count 7.5 X10^3/uL (2.0-7.7); Basophil# 0.02 X10^3/uL; Basophil% 0.2 % (0-1); Eosinophil# 0.13 X10^3/uL; Eosinophils% 1.4 % (0-5); Hematocrit 37.1 % (40-54); Hemoglobin 12.4 g/dl (13.0-16.5); Lymphocyte % 12.7 % (19-41); Mean Corp Hgb Conc 33.4 g/gl (32-36); Mean Corpuscular Hgb 31.2 pg (27.0-32.0); Mean Corpuscular Volume 93.5 fL (80-94); Mean Platelet Vol. 9.4 fl (6.2-12.0); Monocyte# 0.61 X10^3/uL; Monocyte% 6.4 % (0-10); Neutrophil # 7.49 X10^3/uL (2.7-7.7); Neutrophil % 79.1 % (47-70); Platelet Count 235 K/mm3 (150-450); RBC Distribution Width CV 13.4 % (11.6-14.6); RBC Distribution Width SD 45.7 fl (35.1-43.9); Red Blood Count 3.97 M/mm3 (4.6-6.2); White Blood Count 9.5 K/mm3 (4.4-11.0)
[2018-08-20 06:13] LABS: POSITIVE COUNT NO; POSITIVE DIFFERENTIAL NO; POSITIVE MORPHOLOGY NO
[2018-08-20 06:38] LABS: Albumin, Serum 2.3 g/dL (3.2-5.0); BUN 13 mg/dL (7-18); Calcium,Total 8.2 mg/dL (8.5-10.1); Chloride 110 mmol/L (98-107); Creatinine, Serum 0.76 mg/dL (0.70-1.30); EST Glomerular Filtration Rate 107 mL/min (>60); Est Glom Filt Rate - Afr Amer 129 mL/min (>60); Estimated Creatinine Clearance 44.97 ml/min; Glucose 105 mg/dL (74-106); Phosphorus 1.3 mg/dL (2.5-4.9); Potassium 3.1 mmol/L (3.5-5.1); Sodium Level 146 mmol/L (136-145)
[2018-08-20] MEDS: Heparin Injection (Vial) 5,000 UNIT/ML VIAL 5000 UNIT SC ×2 (10:18→21:06)
[2018-08-20] MEDS: amLODIPine 5 MG Tablet PO (10:22)
[2018-08-20] MEDS: Na Biphos/Potassium Phosphate PACKET 1 PACKET PO ×2 (12:05→21:07)
--- NOTE | 2018-08-20 12:27 | PCM.PN.REN ---
Patient Problems: Active and Suspected Problems Urinary retention due to benign prostatic hyperplasia (Acute) Acute kidney failure (Acute) Hydronephrosis (Acute) Hyperkalemia (Acute) Subjective: Patient with anorexia. Renal function back to normal. Good urine output with Espinosa to CD. Potassium level low. We will stop his low potassium diet. He has his dentures will remove his pur?e diet. - Physical Exam General: Alert, Oriented x3, Cooperative Lungs: Clear to auscultation Cardiovascular: Regular rate Extremities: No edema Vital Signs Temp Pulse Resp BP Pulse Ox 99.0 F 75 16 139/61 H 98 08/20/18 10:16 08/20/18 11:10 08/20/18 10:16 08/20/18 10:16 08/20/18 10:16 Oxygen Delivery Method Room Air Weight: 45.6 kg Body Mass Index (BMI) 17.8 Intake and Output for Last 24 Hours 08/18/18 08/19/18 08/20/18 23:59 23:59 23:59 Intake Total 873 / 873 3829 / 3829 231 / 231 Output Total 2600 / 2600 2700 / 2700 250 / 250 Balance -1727 / -1727 1129 / 1129 -19 / -19 Laboratory Tests Past 24 Hrs 08/19/18 08/20/18 08/20/18 18:14 05:40 05:40 WBC 9.5 RBC 3.97 L Hgb 12.4 L Hct 37.1 L MCV 93.5 MCH 31.2 MCHC 33.4 RDW 13.4 RDW Differential 45.7 H Plt Count 235 MPV 9.4 Immature Gran % (Auto) 0.200 Neut % (Auto) 79.1 H Lymph % (Auto) 12.7 L [place] % (Auto) 6.4 Eos % (Auto) 1.4 Baso % (Auto) 0.2 Absolute Neuts (auto) 7.5 Absolute Lymphs (auto) 1.20 Total Counted Not Reportable Sodium 145 146 H Potassium 3.1 L 3.1 L Chloride 111 H 110 H Carbon Dioxide 27.0 27.0 Anion Gap 7 BUN 22 H 13 Creatinine 1.22 0.76 Estim Creat Clear Calc 39.20 44.97 Est GFR (MDRD) Af Amer 76 129 Est GFR (MDRD) Non-Af 62 107 BUN/Creatinine Ratio 18.0 17.0 Glucose 115 H 105 Calcium 8.6 8.2 L Phosphorus 1.3 L Albumin 2.3 L Medical Necessity - Tobacco Use Smoking Status: Former smoker Tobacco Use: Non-smoker Assessment/Plan All Active Problems Dental caries extending into pulp (Acute) Urinary retention due to benign prostatic hyperplasia (Acute) Acute kidney failure (Acute) Hydronephrosis (Acute) Hyperkalemia (Acute) 1. RIAN due to urinary retention obstruction from BPH. Good urine output after espinosa inserted. Creatinine improved to 0.76 2. Hyperkalemia due to renal failure, NSAID, lisinopril resolved. Now hypokalemic. Replace as needed. Stop low potassium diet. 3. s/p upper teeth extraction with anesthesia that may have contributed to urinary retention symptoms. 4. HTN monitor off lisinopril. Blood pressure stable. 5. Hypernatremia agree with free water 6. Protein calorie malnutrition recommend protein supplements.
[2018-08-20] MEDS: 0.45% Normal Saline 1,000 ML 50 ML IV (15:09)
--- NOTE | 2018-08-20 15:21 | PCM.PROGNOTE ---
<Aditya Larios - Last Filed: 08/20/18 15:21> Patient Problems: Active and Suspected Problems Urinary retention due to benign prostatic hyperplasia (Acute) Acute kidney failure (Acute) Hydronephrosis (Acute) Hyperkalemia (Acute) Subjective: Pt resting comfortably in bed NAD. Still some weakness and difficulty ambulating. No hearing/vision changes. No cough or SOB. No abdominal pain. No espinosa discomfort. No n/v. Tolerating PO diet well - soft without dentures. - Physical Exam General: Alert, Oriented x3, Cooperative, - - frail HEENT: Atraumatic, PERRLA, EOMI, Normocephalic Neck: Supple, No JVD, Negative Carotid Bruits Lungs: Clear to auscultation, Normal air movement Cardiovascular: Regular rate, No murmurs Abdomen: Bowel Sounds Present, Soft, Non Tender Extremities: No edema, Capillary Refill Less than 3 Seconds Skin: No rashes, No breakdown Musculoskeletal: No Tenderness to Palpation of Joints or Extremities Neurological: Cranial nerves II-XII grossly intact Psych/Mental Status: Normal Affect, Appropriate, Alert and oriented to time, place, person, mood and affect Vital Signs Temp Pulse Resp BP Pulse Ox 99.0 F 75 16 139/61 H 98 08/20/18 10:16 08/20/18 11:10 08/20/18 10:16 08/20/18 10:16 08/20/18 10:16 Oxygen Delivery Method Room Air Weight: 100 lb 8.493 oz Body Mass Index (BMI) 17.8 Intake and Output for Last 24 Hours 08/18/18 08/19/18 08/20/18 23:59 23:59 23:59 Intake Total 873 / 873 3829 / 3829 1037 / 1037 Output Total 2600 / 2600 2700 / 2700 1250 / 1250 Balance -1727 / -1727 1129 / 1129 -213 / -213 Laboratory Tests Past 24 Hrs 08/19/18 08/20/18 08/20/18 18:14 05:40 05:40 WBC 9.5 RBC 3.97 L Hgb 12.4 L Hct 37.1 L MCV 93.5 MCH 31.2 MCHC 33.4 RDW 13.4 RDW Differential 45.7 H Plt Count 235 MPV 9.4 Immature Gran % (Auto) 0.200 Neut % (Auto) 79.1 H Lymph % (Auto) 12.7 L [place] % (Auto) 6.4 Eos % (Auto) 1.4 Baso % (Auto) 0.2 Absolute Neuts (auto) 7.5 Absolute Lymphs (auto) 1.20 Total Counted Not Reportable Sodium 145 146 H Potassium 3.1 L 3.1 L Chloride 111 H 110 H Carbon Dioxide 27.0 27.0 Anion Gap 7 BUN 22 H 13 Creatinine 1.22 0.76 Estim Creat Clear Calc 39.20 44.97 Est GFR (MDRD) Af Amer 76 129 Est GFR (MDRD) Non-Af 62 107 BUN/Creatinine Ratio 18.0 17.0 Glucose 115 H 105 Calcium 8.6 8.2 L Phosphorus 1.3 L Albumin 2.3 L Medical Necessity - Tobacco Use Smoking Status: Former smoker Tobacco Use: Non-smoker Assessment/Plan All Active Problems Dental caries extending into pulp (Acute) Urinary retention due to benign prostatic hyperplasia (Acute) Acute kidney failure (Acute) Hydronephrosis (Acute) Hyperkalemia (Acute) 1. RIAN secondary to obstruction by enlarged prostate. We will continue Espinosa catheter until seen by urology in the office. NORA inhibitor changed to calcium channel en. 2. Hypertension-mildly elevated, trend and adjust as needed. 3. Hypernatremia-improving. 4. Low K/Phos, repleted. Recheck in AM. 5. Severe protein malnutrition - window and siding craftsman following, supplement - continue at DC. Needs to get his dentures and f/u with dentist. DVT ppx: heparin DC planning: SNF pending. This patient was seen by Aditya Larios PA-C under the supervision of Doctor Ramirez. <Jasmin Ramirez - Last Filed: 08/21/18 07:33> - Physical Exam Vital Signs Temp Pulse Resp BP Pulse Ox 98.7 F 84 16 139/72 H 94 08/21/18 03:05 08/21/18 07:17 08/21/18 03:05 08/21/18 03:05 08/21/18 03:05 Oxygen Delivery Method Room Air Weight: 47.6 kg Body Mass Index (BMI) 17.8 Intake and Output for Last 24 Hours 08/19/18 08/20/18 08/21/18 23:59 23:59 23:59 Intake Total 3829 / 3829 1461 / 1461 952 / 952 Output Total 2700 / 2700 1700 / 1700 1125 / 1125 Balance 1129 / 1129 -239 / -239 -173 / -173 Laboratory Tests Past 24 Hrs 08/21/18 06:13 Sodium Pending Potassium Pending Chloride Pending Carbon Dioxide Pending BUN Pending Creatinine Pending Est GFR (MDRD) Af Amer Pending Est GFR (MDRD) Non-Af Pending BUN/Creatinine Ratio Pending Glucose Pending Calcium Pending Phosphorus Pending Albumin Pending Assessment/Plan Patient seen and examined. I agree with the interval history and physical exam and assessment and plan as documented by physician assistant account manager, Aditya Larios. Patient feels improved. Denies any new complains. No acute events overnight. Vitals are stable. Labs reviewed - K 3.1 Meds reviewed Discussed with care managers, precert for SNF discharge is pending. Code Visit Inpatient E&M: 80571 Subs Hosp L2
--- NOTE | 2018-08-20 15:58 | CASEMGMT ---
Still do not have approval for patient to go to [facility]. Green sheet on chart in case [place] calls PCU with pre-cert. Lucero STARR Patient cannot go to [facility] unless [facility] calls with pre-cert. Lucero MITCHELL MSW
[2018-08-20] MEDS: Acetaminophen 325 MG Tablet 650 MG PO (16:42)
[2018-08-21 03:05] VITALS: BP 139/72; PULSE 83; RESP 16; TEMP 37.1; O2SAT 94
[2018-08-21 03:06] VITALS: PULSE 88
[2018-08-21 07:17] VITALS: PULSE 84
--- NOTE | 2018-08-21 07:30 | PCM.PN.HOSP ---
Patient Problems: Active and Suspected Problems Urinary retention due to benign prostatic hyperplasia (Acute) Acute kidney failure (Acute) Hydronephrosis (Acute) Hyperkalemia (Acute) Subjective: Patient was seen and examined. Denies any new complaints. Ambulating well with physical therapy. No acute events overnight. Vitals/I&O's: Vital Signs Temp Pulse Resp BP Pulse Ox 98.7 F 84 16 139/72 H 94 08/21/18 03:05 08/21/18 07:17 08/21/18 03:05 08/21/18 03:05 08/21/18 03:05 Oxygen Delivery Method Room Air Weight: 47.6 kg Body Mass Index (BMI) 17.8 Intake and Output for Last 24 Hours 08/19/18 08/20/18 08/21/18 23:59 23:59 23:59 Intake Total 3829 / 3829 1461 / 1461 952 / 952 Output Total 2700 / 2700 1700 / 1700 1125 / 1125 Balance 1129 / 1129 -239 / -239 -173 / -173 General: Alert, Oriented x3, Cooperative, No apparent distress, - HEENT: Atraumatic, PERRLA, EOMI, Normocephalic Oral: Moist Mucosa - Cachectic Neck: Supple Lungs: Clear to auscultation, Normal air movement Cardiovascular: Regular rate, Regular Rhythm, Normal S1, Normal S2, No murmurs Abdomen: Bowel Sounds Present, Soft, Non Tender, Non-Distended, No Hepato-splenomegaly Extremities: No edema Skin: No rashes, No breakdown Musculoskeletal: No Tenderness to Palpation of Joints or Extremities Lymphatic: No Cervical, Supraclavicular, or Inguinal Adenopathy Neurological: Cranial nerves II-XII grossly intact Psych/Mental Status: Normal Affect, Appropriate Laboratory Results 08/21/18 06:13: Sodium Pending, Potassium Pending, Chloride Pending, Carbon Dioxide Pending, BUN Pending, Creatinine Pending, Est GFR (MDRD) Af Amer Pending, Est GFR (MDRD) Non-Af Pending, BUN/Creatinine Ratio Pending, Glucose Pending, Calcium Pending, Phosphorus Pending, Albumin Pending Current Medications Acetaminophen (Tylenol) 650 mg PO Q6H PRN PRN PRN Reason: Mild Pain (1-3)/Temp > 100.7 F Last Admin: 08/20/18 16:42 Dose: 650 mg Amlodipine Besylate (Norvasc) 5 mg PO DAILY [facility] Last Admin: 08/20/18 10:22 Dose: 5 mg Heparin Sodium (Porcine) (Heparin Na) 5,000 unit SC Q12 [facility] Last Admin: 08/20/18 21:06 Dose: 5,000 unit Sodium Chloride () 1,000 mls @ 50 mls/hr IV .Q20H [facility] Last Admin: 08/20/18 15:09 Dose: 50 mls/hr Labetalol HCl (Trandate) 10 mg IV Q6H PRN PRN PRN Reason: SBP greater than 160 Magnesium Hydroxide (Milk Of Magnesia) 30 ml PO DAILY PRN PRN Reason: Constipation Nutritional Formula (Lactose Free) (Ensure Clear) 120 ml PO 4X/DAY [facility] Last Admin: 08/20/18 21:08 Dose: 120 ml Sodium Chloride () 5 - 30 ml IV UD PRN PRN Reason: SALINE FLUSH Medical Necessity - Tobacco Use Smoking Status: Former smoker Tobacco Use: Non-smoker Assessment/Plan All Active Problems Dental caries extending into pulp (Acute) Urinary retention due to benign prostatic hyperplasia (Acute) Acute kidney failure (Acute) Hydronephrosis (Acute) Hyperkalemia (Acute) 67 year old M past medical history of hypertension, recently had dental work done on 08/05/2018. And denied any past medical history of urinary or prostate problems. He admits that after his dental extraction procedure, he has not been drinking much, been feeling weak, been eating only soft diet. Patient felt very unwell this morning, felt very weak and had a fall and was brought to the ED by a friend. 1. Acute kidney injury, post obstruction, poor p.o. intake, continued use of NORA inhibitor, resolved, Unknown kidney baseline, off NORA inhibitors, status post Nixon catheter, Urology and nephrology consulted, We will discontinue IV fluids, continue to monitor I's and O's, encourage patient to drink liberally 2. Hyperkalemia secondary to RIAN, resolved. 3. Hypokalemia, replaced, recheck in am 4. Hypertension, controlled, off Lisinopril, on amlodipine, will continue to monitor. 5. Leukocytosis, likely reactive, no source of infection, will trend in a.m. 6. Anxiety disorder, not on home medication, continue to monitor 7. Severe protein energy malnutrition, dietitian consulted, on supplements 8. DVT prophylaxis with heparin subcu Code Visit Inpatient E&M: 20015 Subs Hosp L2
[2018-08-21 07:31] LABS: Albumin, Serum 2.3 g/dL (3.2-5.0); BUN 13 mg/dL (7-18); BUN/Creat Ratio 18.2 RATIO (10-20); Chloride 104 mmol/L (98-107); Creatinine, Serum 0.71 mg/dL (0.70-1.30); EST Glomerular Filtration Rate 116 mL/min (>60); Est Glom Filt Rate - Afr Amer 140 mL/min (>60); Estimated Creatinine Clearance 46.94 ml/min; Glucose 101 mg/dL (74-106); Phosphorus 1.6 mg/dL (2.5-4.9); Potassium 3.4 mmol/L (3.5-5.1); Sodium Level 139 mmol/L (136-145)
[2018-08-21 08:55] VITALS: BP 136/62; PULSE 80; RESP 16; TEMP 37.1; O2SAT 98
[2018-08-21] MEDS: amLODIPine 5 MG Tablet PO (10:11)
[2018-08-21] MEDS: Heparin Injection (Vial) 5,000 UNIT/ML VIAL 5000 UNIT SC ×2 (10:11→21:05)
[2018-08-21 15:20] VITALS: BP 120/58; PULSE 79; RESP 18; TEMP 37.1; O2SAT 98
[2018-08-21] MEDS: Acetaminophen 325 MG Tablet 650 MG PO (18:47)
[2018-08-21 21:10] VITALS: BP 124/65; PULSE 82; RESP 16; TEMP 37.6; O2SAT 97
[2018-08-22 03:05] VITALS: BP 118/65; PULSE 84; RESP 16; TEMP 37.3; O2SAT 98
[2018-08-22 07:08] LABS: Albumin, Serum 2.5 g/dL (3.2-5.0); BUN 16 mg/dL (7-18); BUN/Creat Ratio 21.7 RATIO (10-20); Calcium,Total 8.5 mg/dL (8.5-10.1); Chloride 103 mmol/L (98-107); Creatinine, Serum 0.74 mg/dL (0.70-1.30); EST Glomerular Filtration Rate 112 mL/min (>60); Est Glom Filt Rate - Afr Amer 135 mL/min (>60); Estimated Creatinine Clearance 46.64 ml/min; Glucose 137 mg/dL (74-106); Phosphorus 2.5 mg/dL (2.5-4.9); Sodium Level 138 mmol/L (136-145)
[2018-08-22 09:05] VITALS: BP 133/69; PULSE 85; RESP 16; TEMP 36.9; O2SAT 94
[2018-08-22] MEDS: Heparin Injection (Vial) 5,000 UNIT/ML VIAL 5000 UNIT SC ×2 (09:08→22:10)
[2018-08-22] MEDS: amLODIPine 5 MG Tablet PO (09:08)
[2018-08-22] MEDS: Acetaminophen 325 MG Tablet 650 MG PO ×2 (12:07→19:44)
[2018-08-22 13:35] VITALS: BP 122/68; PULSE 95; RESP 16; TEMP 37.2; O2SAT 94
--- NOTE | 2018-08-22 13:47 | PCM.PROGNOTE ---
<Aditya Larios - Last Filed: 08/22/18 13:47> Patient Problems: Active and Suspected Problems Urinary retention due to benign prostatic hyperplasia (Acute) Acute kidney failure (Acute) Hydronephrosis (Acute) Hyperkalemia (Acute) Subjective: No acute issues. Resting comfortably in bed. Appetite improved, tolerating supplements. No f/c/espinosa discomfort. Ambulating better in halls. - Physical Exam General: Alert, Oriented x3, Cooperative, - - frail HEENT: Atraumatic, PERRLA, EOMI, Normocephalic Neck: Supple, No JVD, Negative Carotid Bruits Lungs: Clear to auscultation, Normal air movement Cardiovascular: Regular rate, No murmurs Abdomen: Bowel Sounds Present, Soft, Non Tender Extremities: No edema, Capillary Refill Less than 3 Seconds Skin: No rashes, No breakdown Musculoskeletal: No Tenderness to Palpation of Joints or Extremities Neurological: Cranial nerves II-XII grossly intact Psych/Mental Status: Normal Affect, Appropriate Vital Signs Temp Pulse Resp BP Pulse Ox 98.5 F 85 16 133/69 H 94 08/22/18 09:05 08/22/18 09:05 08/22/18 09:05 08/22/18 09:05 08/22/18 09:05 Oxygen Delivery Method Room Air Weight: 104 lb 4.458 oz Intake and Output for Last 24 Hours 08/20/18 08/21/18 08/22/18 23:59 23:59 23:59 Intake Total 758 / 1710 840 / 840 Output Total 975 / 2100 1800 / 1800 Balance -217 / -390 -960 / -960 Laboratory Tests Past 24 Hrs 08/22/18 06:30 Sodium 138 Potassium 4.0 Chloride 103 Carbon Dioxide 27.0 BUN 16 Creatinine 0.74 Estim Creat Clear Calc 46.64 Est GFR (MDRD) Af Amer 135 Est GFR (MDRD) Non-Af 112 BUN/Creatinine Ratio 21.7 H Glucose 137 H Calcium 8.5 Phosphorus 2.5 Albumin 2.5 L Medical Necessity - Tobacco Use Smoking Status: Former smoker Tobacco Use: Non-smoker Assessment/Plan All Active Problems Dental caries extending into pulp (Acute) Urinary retention due to benign prostatic hyperplasia (Acute) Acute kidney failure (Acute) Hydronephrosis (Acute) Hyperkalemia (Acute) 1. RIAN secondary to obstruction by enlarged prostate. We will continue Espinosa catheter until seen by urology in the office. NORA inhibitor changed to calcium channel en. Will also f/u with dr. Tree keenan. 2. Hypertension-mildly elevated, trend and adjust as needed. 3. Hypernatremia-resolved 4. Low K/Phos - resolved 5. Severe protein malnutrition - collet making machine operator following, supplement - continue at DC. Needs to get his dentures and f/u with dentist. 6. Debility - ambulating with walker better. DVT ppx: heparin DC planning: SNF pending. This patient was seen by Aditya Larios PA-C under the supervision of Doctor Ramirez. <Jasmin Ramirez - Last Filed: 08/22/18 17:10> - Physical Exam Vital Signs Temp Pulse Resp BP Pulse Ox 98.5 F 83 16 123/70 H 95 08/22/18 15:50 08/22/18 15:50 08/22/18 15:50 08/22/18 15:50 08/22/18 15:50 Oxygen Delivery Method Room Air Weight: 47.3 kg Intake and Output for Last 24 Hours 08/20/18 08/21/18 08/22/18 23:59 23:59 23:59 Intake Total 758 / 1710 840 / 840 Output Total 975 / 2100 1800 / 1800 Balance -217 / -390 -960 / -960 Laboratory Tests Past 24 Hrs 08/22/18 06:30 Sodium 138 Potassium 4.0 Chloride 103 Carbon Dioxide 27.0 BUN 16 Creatinine 0.74 Estim Creat Clear Calc 46.64 Est GFR (MDRD) Af Amer 135 Est GFR (MDRD) Non-Af 112 BUN/Creatinine Ratio 21.7 H Glucose 137 H Calcium 8.5 Phosphorus 2.5 Albumin 2.5 L Assessment/Plan Patient was seen and examined. Agree with interval history, physical exam and assessment and plan as documented by physician assistant elementary teacher Aditya Larios. Patient continues to do well, no acute events overnight. Vitals reviewed, stable Labs show continued improvement -hypokalemia resolved Medications Reviewed Will await insurance precertification for discharge Code Visit Inpatient E&M: 05114 Subs Hosp L2
[2018-08-22 15:50] VITALS: BP 123/70; PULSE 83; RESP 16; TEMP 36.9; O2SAT 95
[2018-08-22 21:50] VITALS: BP 123/77; PULSE 92; RESP 16; TEMP 36.7; O2SAT 96
[2018-08-23] MEDS: MELATONIN 3 MG TABLET PO ×2 (00:22→22:17)
[2018-08-23 03:50] VITALS: BP 129/80; PULSE 96; RESP 16; TEMP 36.7; O2SAT 95
[2018-08-23] MEDS: Acetaminophen 325 MG Tablet 650 MG PO ×2 (04:29→18:03)
[2018-08-23 06:33] LABS: Albumin, Serum 2.7 g/dL (3.2-5.0); BUN 21 mg/dL (7-18); BUN/Creat Ratio 26.5 RATIO (10-20); Calcium,Total 9.1 mg/dL (8.5-10.1); Chloride 101 mmol/L (98-107); Creatinine, Serum 0.79 mg/dL (0.70-1.30); EST Glomerular Filtration Rate 103 mL/min (>60); Est Glom Filt Rate - Afr Amer 125 mL/min (>60); Estimated Creatinine Clearance 45.95 ml/min; Glucose 138 mg/dL (74-106); Phosphorus 2.7 mg/dL (2.5-4.9); Sodium Level 137 mmol/L (136-145)
[2018-08-23 09:30] VITALS: BP 112/83; PULSE 113; RESP 16; TEMP 37.1; O2SAT 97
[2018-08-23] MEDS: amLODIPine 5 MG Tablet PO (09:35)
[2018-08-23] MEDS: Heparin Injection (Vial) 5,000 UNIT/ML VIAL 5000 UNIT SC ×2 (09:36→22:17)
[2018-08-23 10:00] VITALS: BP 133/80; PULSE 105; RESP 16; TEMP 37.1; O2SAT 98
--- NOTE | 2018-08-23 10:23 | CASEMGMT ---
Updates sent to [facility]. Await pre-cert. Plan: [facility] pending insurance approval. Lucero MITCHELL MSW
--- NOTE | 2018-08-23 14:11 | PCM.PROGNOTE ---
<Aditya Larios - Last Filed: 08/23/18 14:11> Patient Problems: Active and Suspected Problems Urinary retention due to benign prostatic hyperplasia (Acute) Acute kidney failure (Acute) Hydronephrosis (Acute) Hyperkalemia (Acute) Subjective: No complaints. Up ambulating with walker in halls again, no issues. - Physical Exam General: Alert, Oriented x3, Cooperative HEENT: Atraumatic, PERRLA, EOMI, Normocephalic Neck: Supple, No JVD, Negative Carotid Bruits Lungs: Clear to auscultation, Normal air movement Cardiovascular: Regular rate, No murmurs Abdomen: Bowel Sounds Present, Soft, Non Tender Extremities: No edema, Capillary Refill Less than 3 Seconds Skin: No rashes, No breakdown Musculoskeletal: No Tenderness to Palpation of Joints or Extremities Neurological: Cranial nerves II-XII grossly intact Psych/Mental Status: Normal Affect, Appropriate, Alert and oriented to time, place, person, mood and affect Vital Signs Temp Pulse Resp BP Pulse Ox 98.7 F 105 H 16 133/80 H 98 08/23/18 10:00 08/23/18 10:00 08/23/18 10:00 08/23/18 10:00 08/23/18 10:00 Oxygen Delivery Method Room Air Weight: 102 lb 11.767 oz Intake and Output for Last 24 Hours 08/21/18 08/22/18 08/23/18 23:59 23:59 23:59 Intake Total 758 / 1710 1440 / 1440 720 / 720 Output Total 975 / 2100 2275 / 2275 1250 / 1250 Balance -217 / -390 -835 / -835 -530 / -530 Laboratory Tests Past 24 Hrs 08/23/18 05:50 Sodium 137 Potassium 4.0 Chloride 101 Carbon Dioxide 27.0 BUN 21 H Creatinine 0.79 Estim Creat Clear Calc 45.95 Est GFR (MDRD) Af Amer 125 Est GFR (MDRD) Non-Af 103 BUN/Creatinine Ratio 26.5 H Glucose 138 H Calcium 9.1 Phosphorus 2.7 Albumin 2.7 L Medical Necessity - Tobacco Use Smoking Status: Former smoker Tobacco Use: Non-smoker Assessment/Plan All Active Problems Dental caries extending into pulp (Acute) Urinary retention due to benign prostatic hyperplasia (Acute) Acute kidney failure (Acute) Hydronephrosis (Acute) Hyperkalemia (Acute) 1. RIAN secondary to obstruction by enlarged prostate. Resolved. We will continue Nixon catheter until seen by urology in the office. NORA inhibitor changed to calcium channel en. Will also f/u with dr. Tree keenan. 2. Hypertension-mildly elevated, trend and adjust as needed. 3. Hypernatremia-resolved 4. Low K/Phos - resolved 5. Severe protein malnutrition - cable maker following, supplement - continue at DC. Needs to get his dentures and f/u with dentist. 6. Debility - ambulating with walker better. DVT ppx: heparin DC planning: SNF precert pending. This patient was seen by Aditya Larios PA-C under the supervision of Doctor Silvio. <Devan Anguiano - Last Filed: 08/23/18 15:02> - Physical Exam Vital Signs Temp Pulse Resp BP Pulse Ox 99.3 F H 94 16 126/69 H 96 08/23/18 14:49 08/23/18 14:49 08/23/18 14:49 08/23/18 14:49 08/23/18 14:49 Oxygen Delivery Method Room Air Weight: 46.6 kg Intake and Output for Last 24 Hours 08/21/18 08/22/18 08/23/18 23:59 23:59 23:59 Intake Total 758 / 1710 1440 / 1440 720 / 720 Output Total 975 / 2100 2275 / 2275 1250 / 1250 Balance -217 / -390 -835 / -835 -530 / -530 Laboratory Tests Past 24 Hrs 08/23/18 05:50 Sodium 137 Potassium 4.0 Chloride 101 Carbon Dioxide 27.0 BUN 21 H Creatinine 0.79 Estim Creat Clear Calc 45.95 Est GFR (MDRD) Af Amer 125 Est GFR (MDRD) Non-Af 103 BUN/Creatinine Ratio 26.5 H Glucose 138 H Calcium 9.1 Phosphorus 2.7 Albumin 2.7 L Assessment/Plan This patient was seen in conjunction with Aditya Larios PA-C. I have independently interviewed and examined the patient and reviewed pertinent historical, laboratory, and other data. Please refer to Aditya Larios PA-C note for details of this patient's presentation, findings, and recommendations. I have reviewed Aditya Larios PA-C note and concur with documented findings. In brief, patient is a 67-year-old gentleman admitted with progressive generalized weakness found to be in acute kidney injury he was also found to have significant electrolyte abnormalities including hyperkalemia and hypernatremia Physical Examination: GENERAL: Frail looking HEENT: Clear conjunctiva, NECK; supple, normal thyroid, CHEST: Diminished to auscultation bilaterally, HEART: Regular S1 S2, no audible murmurs SKIN: No Rash Assessment: 1. Acute kidney injury secondary to obstructive uropathy 2. Hyperkalemia 3. Hypernatremia 4. Severe protein calorie malnutrition 5. Hyperphosphatemia 6. Physical debility 7. Hypertension Recommendations: 1. I have discussed the results of my overview and impressions with the patient 2. Options for management were reviewed Active Medications Acetaminophen (Tylenol) 650 mg PO Q6H PRN PRN PRN Reason: Mild Pain (1-3)/Temp > 100.7 F Last Admin: 08/23/18 04:29 Dose: 650 mg Amlodipine Besylate (Norvasc) 5 mg PO DAILY [facility] Last Admin: 08/23/18 09:35 Dose: 5 mg Heparin Sodium (Porcine) (Heparin Na) 5,000 unit SC Q12 [facility] Last Admin: 08/23/18 09:36 Dose: 5,000 unit Labetalol HCl (Trandate) 10 mg IV Q6H PRN PRN PRN Reason: SBP greater than 160 Magnesium Hydroxide (Milk Of Magnesia) 30 ml PO DAILY PRN PRN Reason: Constipation Melatonin (Melatonin) 3 mg PO QHS PRN PRN Reason: SLEEP Last Admin: 08/23/18 00:22 Dose: 3 mg Nutritional Formula (Lactose Free) (Ensure Enlive) 120 ml PO 4X/DAY [facility] Last Admin: 08/23/18 14:48 Dose: 120 ml Sodium Chloride () 5 - 30 ml IV UD PRN PRN Reason: SALINE FLUSH Code Visit Inpatient E&M: 33969 Subs Hosp L2
[2018-08-23 14:49] VITALS: BP 126/69; PULSE 94; RESP 16; TEMP 37.4; O2SAT 96
[2018-08-23 20:36] VITALS: BP 121/69; PULSE 101; RESP 14; TEMP 37.2; O2SAT 94
[2018-08-24] MEDS: Acetaminophen 325 MG Tablet 650 MG PO (01:29)
[2018-08-24 02:27] VITALS: BP 117/68; PULSE 96; RESP 15; TEMP 36.6; O2SAT 97
[2018-08-24 08:43] VITALS: BP 111/70; PULSE 95; RESP 18; TEMP 36.6; O2SAT 98
[2018-08-24 08:47] VITALS: PULSE 90
[2018-08-24] MEDS: amLODIPine 5 MG Tablet PO (09:00)
[2018-08-24] MEDS: Heparin Injection (Vial) 5,000 UNIT/ML VIAL 5000 UNIT SC (09:00)
--- NOTE | 2018-08-24 10:18 | DCINST_ITS ---
- Discharge Diagnoses Current Active Problems: Current Active and Chronic Problems Urinary retention due to benign prostatic hyperplasia (Acute) Acute kidney failure (Acute) Hydronephrosis (Acute) Hypertension (Chronic) Hyperkalemia (Acute) You will use the following diet at home:: Cardiac Your food should be the consistency of: Regular Your liquids should be the consistency of: Regular/Thin Discharge Activity: Return to Normal Activity Allergies/Adverse Reactions: Allergies Penicillins Allergy (Verified 08/18/18 09:36) Unknown Medications to take at Discharge Amlodipine [Norvasc] 5 mg PO DAILY #30 tablet 08/24/18 Tamsulosin HCl [Flomax] 0.4 mg PO DAILY #30 cap.er.24h 08/24/18 The following prescriptions were given: Amlodipine [Norvasc] 5 mg PO DAILY #30 tablet Tamsulosin HCl [Flomax] 0.4 mg PO DAILY #30 cap.er.24h Primary Care Physician: Constantine Garcia MD [Primary Care Provider] - Please follow up with your Primary Care Physician in: 1-2 weeks Test Results: Test results from this visit will be discussed in further detail at your follow- up appointment, if applicable. Please Follow Up With: Juan Sánchez MD When: 1 week Please Follow Up With: Mar Leavitt DO When: 1-2 weeks Proposed Discharge Date: 08/24/18
--- NOTE | 2018-08-24 11:04 | CASEMGMT ---
SW received a call from [facility] and they denied patient to go to the senior living. SW spoke with patient and let him know this information. He was upset and said he does not know how he will take care of himself at home. SW asked him what he is not able to do and he said how will he prepare meals. SW told him SW can set up [facility]. SW told him he is doing really well with therapy. SW told him SW can set up home health where a nurse will come out to his home as well as therapy. He was in agreement with this. SAMUEL called [facility] [place] [facility] as most of the other HH agencies do not take [employer] Medicare. They can take patient. SAMUEL faxed referral and d/c orders to [facility] ([phone]). SAMUEL also faxed referral to [facility]. SAMUEL spoke with patient and let him know this information. SW also let him know HH and [facility] will call him. Plan: [facility], [facility], and OT. SAMUEL also made a referral for [facility]. Lucero MITCHELL DYE HOUSE VAT WORKER
--- NOTE | 2018-08-24 12:53 | PCM.DC.SUM ---
<Aditya Larios - Last Filed: 08/24/18 12:53> Discharge Date and Diagnosis Date of Admission: 08/18/18 Date of Discharge: 08/24/18 - Primary Discharge Diagnosis RIAN 2/2 obstruction from enlarged prostate, likely bph Debility Hypokalamia, hypophosphatemia, hypernatremia resolved severe protein calorie malnutrition - Secondary Discharge Diagnosis Chronic Problems Hypertension (Chronic) Hospital Course and Treatment Imaging Results: CT/Abdomen/Pelvis without Cont IMPRESSION: Evidence of bladder outlet partial obstruction with marked distention of the urinary bladder, bilateral hydroureter and hydronephrosis. Associated with prostatomegaly. Consults: Tree - neprhology Gonzalo - urology Operations: None Procedures: None Summary of Care Provided: Physical exam on day of discharge: General: Resting comfortably NAD Psych: A/Ox3 normal affect HEENT: PEARRLA AT NC Neck: Supple NT CV: RRR no m/t/r/g/h Resp: CTA Abd: [id number] Soft NT no guarding or rigidity Ext: DP2+= no edema Skin: W/D normal turgor Lymph/Heme: No active bleeding or adenopathy Neuro: CN2-12 intact Hospital course: The patient is a 67 year old M with a hx of htn who presented to the ER with c.o generalized malaize and decreased po intake at home. He felt weak and fell and was brought to the ER and found to have RIAN. A CT of the abdomen was obtained showed urinary obstruction and hydronephrosis and abnormal electrolytes. Urology and nephrology were consulted. He was admitted to the PCU on tele. He was given a espinosa catheter, added flomax, changed lisinopril to norvasc. Electrolytes were replaced and IV fluids given. He responded very well to care. PTOT was provided as well as nutrition supplements for weakness and malnutrition. He did well and ambulated well with therapy. He was denied placement in SNF, and went home in stable condition with home health. He will go with a espinosa until follow up with Gonzalo. He will also need to see his PCP and leasing manager. This patient was seen by Aditya Larios PA-C under the supervision of Doctor Silvio. [] Discharge Diet: Low fat/ Low Cholesterol, 2000 mg Sodium Diet Discharge Activity: Return to Normal Activity Home Medications: Medications to take at Discharge Amlodipine [Norvasc] 5 mg PO DAILY #30 tablet 08/24/18 Tamsulosin HCl [Flomax] 0.4 mg PO DAILY #30 cap.er.24h 08/24/18 Following Prescrptions Were Given to Patient: Amlodipine [Norvasc] 5 mg PO DAILY #30 tablet Tamsulosin HCl [Flomax] 0.4 mg PO DAILY #30 cap.er.24h Primary Care Physician: Constantine Garcia MD [Primary Care Provider] - Please follow up with your Primary Care Physician in: 1-2 weeks Please Follow Up With: Juan Sánchez MD When: 1 week Please Follow Up With: Mar Leavitt DO When: 1-2 weeks Disposition: Home with Home Health Minutes spent on discharge:: 35 Patient Condition:: Stable Medical Necessity - Tobacco Use Smoking Status: Former smoker Tobacco Use: Non-smoker Meaningful Use Info Meaningful Use Diagnoses (Choose all that apply): None applicable <Devan Anguiano - Last Filed: 08/24/18 13:14> Discharge Date and Diagnosis - Secondary Discharge Diagnosis Chronic Problems Hypertension (Chronic) Hospital Course and Treatment Summary of Care Provided: This patient was seen in conjunction with Aditya Larios PA-C. I have independently interviewed and examined the patient and reviewed pertinent historical, laboratory, and other data. Please refer to Aditya Larios PA-C note for details of this patient's presentation, findings, and recommendations. I have reviewed Aditya Larios PA-C note and concur with documented findings. In brief, patient is a 67-year-old gentleman admitted with progressive generalized weakness found to be in acute kidney injury he was also found to have significant electrolyte abnormalities including hyperkalemia and hypernatremia Physical Examination: GENERAL: Frail looking HEENT: Clear conjunctiva, NECK; supple, normal thyroid, CHEST: Diminished to auscultation bilaterally, HEART: Regular S1 S2, no audible murmurs SKIN: No Rash Assessment: 1. Acute kidney injury secondary to obstructive uropathy 2. Hyperkalemia 3. Hypernatremia 4. Severe protein calorie malnutrition 5. Hyperphosphatemia 6. Physical debility 7. Hypertension Protocols: As documented above by Aditya Larios Total discharge 45 minutes Code Visit Inpatient E&M: 75766 Disch Hosp
--- NOTE | 2018-08-24 13:00 | DS.PCM_ITS ---
<Aditya Larios - Last Filed: 08/24/18 12:53> Discharge Date and Diagnosis Date of Admission: 08/18/18 Date of Discharge: 08/24/18 - Primary Discharge Diagnosis RIAN 2/2 obstruction from enlarged prostate, likely bph Debility Hypokalamia, hypophosphatemia, hypernatremia resolved severe protein calorie malnutrition - Secondary Discharge Diagnosis Chronic Problems Hypertension (Chronic) Hospital Course and Treatment Imaging Results: CT/Abdomen/Pelvis without Cont IMPRESSION: Evidence of bladder outlet partial obstruction with marked distention of the urinary bladder, bilateral hydroureter and hydronephrosis. Associated with prostatomegaly. Consults: Tree - neprhology Gonzalo - urology Operations: None Procedures: None Summary of Care Provided: Physical exam on day of discharge: General: Resting comfortably NAD Psych: A/Ox3 normal affect HEENT: PEARRLA AT NC Neck: Supple NT CV: RRR no m/t/r/g/h Resp: CTA Abd: [id number] Soft NT no guarding or rigidity Ext: DP2+= no edema Skin: W/D normal turgor Lymph/Heme: No active bleeding or adenopathy Neuro: CN2-12 intact Hospital course: The patient is a 67 year old M with a hx of htn who presented to the ER with c.o generalized malaize and decreased po intake at home. He felt weak and fell and was brought to the ER and found to have RIAN. A CT of the abdomen was obtained showed urinary obstruction and hydronephrosis and abnormal electrolytes. Urology and nephrology were consulted. He was admitted to the PCU on tele. He was given a espinosa catheter, added flomax, changed lisinopril to norvasc. Electrolytes were replaced and IV fluids given. He responded very well to care. PTOT was provided as well as nutrition supplements for weakness and malnutrition. He did well and ambulated well with therapy. He was denied placement in SNF, and went home in stable condition with home health. He will go with a espinosa until follow up with Gonzalo. He will also need to see his PCP and strap buckler. This patient was seen by Aditya Larios PA-C under the supervision of Doctor Silvio. [] Discharge Diet: Low fat/ Low Cholesterol, 2000 mg Sodium Diet Discharge Activity: Return to Normal Activity Home Medications: Medications to take at Discharge Amlodipine [Norvasc] 5 mg PO DAILY #30 tablet 08/24/18 Tamsulosin HCl [Flomax] 0.4 mg PO DAILY #30 cap.er.24h 08/24/18 Following Prescrptions Were Given to Patient: Amlodipine [Norvasc] 5 mg PO DAILY #30 tablet Tamsulosin HCl [Flomax] 0.4 mg PO DAILY #30 cap.er.24h Primary Care Physician: Constantine Garcia MD [Primary Care Provider] - Please follow up with your Primary Care Physician in: 1-2 weeks Please Follow Up With: Juan Sánchez MD When: 1 week Please Follow Up With: Mar Leavitt DO When: 1-2 weeks Disposition: Home with Home Health Minutes spent on discharge:: 35 Patient Condition:: Stable Medical Necessity - Tobacco Use Smoking Status: Former smoker Tobacco Use: Non-smoker Meaningful Use Info Meaningful Use Diagnoses (Choose all that apply): None applicable <Devan Anguiano - Last Filed: 08/24/18 13:14> Discharge Date and Diagnosis - Secondary Discharge Diagnosis Chronic Problems Hypertension (Chronic) Hospital Course and Treatment Summary of Care Provided: This patient was seen in conjunction with Aditya Larios PA-C. I have independe ntly interviewed and examined the patient and reviewed pertinent historical, laboratory, and other data. Please refer to Aditya Larios PA-C note for details of this patient's presentation, findings, and recommendations. I have reviewed Aditya Larios PA-C note and concur with documented findings. In brief, patient is a 67-year-old gentleman admitted with progressive generalized weakness found to be in acute kidney injury he was also found to have significant electrolyte abnormalities including hyperkalemia and hypernatremia Physical Examination: GENERAL: Frail looking HEENT: Clear conjunctiva, NECK; supple, normal thyroid, CHEST: Diminished to auscultation bilaterally, HEART: Regular S1 S2, no audible murmurs SKIN: No Rash Assessment: 1. Acute kidney injury secondary to obstructive uropathy 2. Hyperkalemia 3. Hypernatremia 4. Severe protein calorie malnutrition 5. Hyperphosphatemia 6. Physical debility 7. Hypertension Protocols: As documented above by Aditya Larios Total discharge 45 minutes Code Visit Inpatient E&M: 87626 Disch Hosp
--- NOTE | 2018-08-24 14:48 | CASEMGMT ---
SAMUEL called [facility] and verified they are taking patient and start date is tomorrow. Lucero MITCHELL BRIDGE MANAGER
== END 2018-08-24 12:36 | disposition home health service (06) | DRG 683 ==
LOC: ED 12:46 → PCU 13:36
PROVIDERS: Internal Medicine Nephrology; Admitting Provider Internal Medicine; Emergency Provider Emergency Medicine; Family Provider Family Medicine; PCP Family Medicine; Referring Provider Internal Medicine; Visit Provider Internal Medicine
DX: N17.9 Acute kidney failure, unspecified (principal); N13.8 Other obstructive and reflux uropathy; E87.0 Hyperosmolality and hypernatremia; Z68.1 Body mass index [BMI] 19.9 or less, adult; E46 Unspecified protein-calorie malnutrition; E87.5 Hyperkalemia; N40.1 Benign prostatic hyperplasia with lower urinary tract symptoms; N13.30 Unspecified hydronephrosis; I10 Essential (primary) hypertension; Z87.891 Personal history of nicotine dependence; R33.8 Other retention of urine; E87.6 Hypokalemia; E83.39 Other disorders of phosphorus metabolism; R53.81 Other malaise
CPT/HCPCS: 36415; 51702; 74176; 80048; 80053; 80069; 81001; 85025; 93005; 94640; 97110; 97116; 97162; 97166; 97530; 97535; 97802; 99283; J7030; J0610

== ENCOUNTER 2018-09-04 07:02 | Observation (INO) | payer MEDICARE, MEDICAID, SELFPAY ==
[2018-09-03] VITALS (9 sets, daily range): BP systolic 90–147; BP diastolic 60–98; PULSE 74–105; RESP 14–16; TEMP 36.4–37.1; O2SAT 98–100; BMI 17.4; BMI 17.5
--- NOTE | 2018-09-03 16:05 | PROS_PTH ---
PATIENT: NERISSA VIRK LOC: MS3 U#:[id number] AGE/SX: 67/M ROOM: KS312 RE09/04/[address]: Dr. Juan Sánchez MD : [id number] BED: 1 DIS: 09/06/2018 SPEC #: [id number] RECD: 09/06/18 09:19 STATUS: KARYN FERRARI #: [id number] YARELY: 09/03/18 16:[address]: Juan Sánchez DEPT: SURGICAL PATHOLOGY RECD BY: Tamie Rubio ENTERED: 09/06/18 11:34 SP TYPE: TURP OTHR DR: Dr. Constantine Garcia MD Tissues: Prostate, NOS Procedures: Surgery Specimen Level IV HEADER OPERATION: Cystoscopy, transurethral resection of prostate, Olympus PRE-OP DIAGNOSIS: BPH with obstruction, urinary retention TISSUE SUBMITTED: Prostate tissue MICROSCOPIC DIAGNOSIS Prostate, transurethral resection: Benign nodular hyperplasia, glandular and stromal types. Chronic inflammation. AM:santos 09/07/18 MICROSCOPIC DESCRIPTION Slides are reviewed. GROSS DESCRIPTION Received is one container labeled with the patient's name and designated prostate tissue. The specimen consists of multiple irregular fragments of pink-woods, rubbery, soft tissue that in aggregate weigh 29.7 gm and measure in aggregate 8 x 8 x 3 cm. Neon Sign Installer tissue is submitted in 12 cassettes. / SJ:santos 09/06/18 TC:3 CPT: 63853
[2018-09-03] MEDS: Cefazolin 2 GM in 0.9% Normal Saline 100 ML IV (16:54)
--- NOTE | 2018-09-03 18:07 | PCM.OPRPT ---
Report of Operation Date of Procedure: 09/03/18 Pre-Operative Diagnosis: BPH with urinary retention Post-Operative Diagnosis: The same Surgery/Procedure Performed:: Transurethral resection of the prostate with the Olympus resectoscope Description of Surgical Findings:: 67-year-old male presented to the hospital with retention of urine and hydronephrosis, he had severe BPH and obstruction has about an 80 g prostate measured by ultrasound today we plan to proceed with a transurethral resection of the prostate. 67-year-old male taken back to the operating room at the smooth induction of general anesthesia he was placed supine on the table in the dorsolithotomy position, the current catheter was removed penis and testicles were prepped and draped in usual sterile fashion. I then went into the bladder with a 26 Haitian continuous flow Olympus resectoscope. On examination he had a very large protruding prostate into the bladder with significant obstruction bilateral hypertrophy large median lobe large lateral lobes all this protruding into the bladder causing obstruction he had significantly atrophic trabeculated bladder with thickening of the bladder no tumors or stones are seen within the bladder. I then switched over to the resectoscope loop and then started resecting at the 6:00 resected down the median lobe to the muscle fibers and then resected circumferentially all the way around to resect all the protruding tissue into the bladder I then started resecting at the 6:00 back to the Juan M and then worked my way laterally up on the patient's right side all the way to the apex and all the way to the 12:00 of the prostate I then worked my way from the 6:00 in the left side of the prostate all the way to the 12:00 and the prostate after was resected all the tissue and I Ellik out the bladder made sure that all the obstructing tissue was out of the way of the urinary channel below the verumontanum sphincter was intact there was some small tearing of the commission commissure and the anterior part but I do not think the sphincter was involved, will check back in the sphincter looked intact verumontanum was intact and then made a flow test had a nice wide open flow went back into the bladder with the scope and resected some more tissue was obstructing and then once I had all the obstructing tissue resected than Ellik out all the chips obtain hemostasis electrocautery and then put a 22 Haitian catheter into the bladder on continuous flow irrigation and the patient anesthetic is currently being reversed the urine is nice and clear. Type of Anesthesia:: General Drains: 22fr 3 way - Admit VTE Documentation VTE Present on Admission: No VTE Mechan Device Prophylaxis: SCD's VTE Pharm Prophylaxis ordered?: No Reason prophylaxis not ordered:: Treatment Not Indicated
[2018-09-03] MEDS: 0.9% Normal Saline 1,000 ML 75 ML IV (20:03)
[2018-09-03] MEDS: Tamsulosin HCl 0.4 MG Capsule PO (21:02)
[2018-09-03] MEDS: Docusate Sodium 100 MG Capsule PO (21:02)
[2018-09-03] MEDS: Acetaminophen 325 MG Tablet PO (21:03)
[2018-09-03] MEDS: Ciprofloxacin 500 MG Tablet PO (23:26)
[2018-09-04] MEDS: Acetaminophen 325 MG Tablet PO ×2 (02:55→20:30)
[2018-09-04] MEDS: 0.9% Normal Saline 1,000 ML 75 ML IV ×2 (05:42→19:21)
[2018-09-04 06:19] VITALS: BP 100/56; PULSE 73; RESP 16; TEMP 36.5; O2SAT 100
--- NOTE | 2018-09-04 07:02 | PCM.PROGNOTE ---
Subjective: Status post TURP for a very large prostate continue with CBI slowly no issues overnight - Physical Exam General: Alert, Oriented x3, Cooperative HEENT: Atraumatic, PERRLA, EOMI, Normocephalic Neck: Supple, No JVD, Negative Carotid Bruits Lungs: Clear to auscultation, Normal air movement Cardiovascular: Regular rate, No murmurs Abdomen: Bowel Sounds Present, Soft, Non Tender Extremities: No edema, Capillary Refill Less than 3 Seconds Skin: No rashes, No breakdown Musculoskeletal: No Tenderness to Palpation of Joints or Extremities Neurological: Cranial nerves II-XII grossly intact Psych/Mental Status: Normal Affect, Appropriate Vital Signs Temp Pulse Resp BP Pulse Ox 97.7 F L 73 16 100/56 L 100 09/04/18 06:19 09/04/18 06:19 09/04/18 06:19 09/04/18 06:19 09/04/18 06:19 Oxygen Delivery Method Room Air Weight: 47.7 kg Body Mass Index (BMI) 17.4 Intake and Output for Last 24 Hours 09/02/18 09/03/18 09/04/18 23:59 23:59 23:59 Intake Total 1050 / 1050 1491 / 1491 Output Total 1150 / 1150 1200 / 1200 Balance -100 / -100 291 / 291 Medical Necessity - Tobacco Use Smoking Status: Former smoker Tobacco Use: Non-smoker Assessment/Plan All Active Problems Dental caries extending into pulp (Acute) Urinary retention due to benign prostatic hyperplasia (Acute) Acute kidney failure (Acute) Hydronephrosis (Acute) Hyperkalemia (Acute)
[2018-09-04 07:37] VITALS: BP 93/61; PULSE 72; RESP 16; TEMP 36.7; O2SAT 99
[2018-09-04] MEDS: Ciprofloxacin 500 MG Tablet PO ×2 (09:23→21:17)
[2018-09-04] MEDS: Docusate Sodium 100 MG Capsule PO ×2 (09:23→21:17)
[2018-09-04] MEDS: Pantoprazole Sodium 40 MG Tablet PO (09:23)
--- NOTE | 2018-09-04 10:20 | CASEMGMT ---
Social Work Note Pt is coming up as being self pay. SAMUEL met with pt. Per pt he has [place] and [facility]. Pt states that he has the cards and from his standpoint his insurance plans are still good and up to date. SW placed a call to [employer] and left a message informing them of this. Heather Mcdonald PRICING COORDINATOR, MULTI SENSOR OPERATOR
[2018-09-04 11:55] VITALS: BP 110/61; PULSE 88
[2018-09-04] MEDS: amLODIPine 5 MG Tablet PO (12:00)
[2018-09-04 13:59] VITALS: BP 101/59; PULSE 83; RESP 16; TEMP 36.9; O2SAT 98
[2018-09-04 20:16] VITALS: BP 107/61; PULSE 98; RESP 16; TEMP 36.6; O2SAT 99
[2018-09-04] MEDS: Tamsulosin HCl 0.4 MG Capsule PO (21:17)
[2018-09-05 02:45] VITALS: BP 122/63; PULSE 89; RESP 16; TEMP 36.7; O2SAT 100
[2018-09-05 08:13] VITALS: BP 100/66; PULSE 91; RESP 16; TEMP 36.9; O2SAT 98
[2018-09-05] MEDS: 0.9% Normal Saline 1,000 ML 75 ML IV ×2 (08:49→22:07)
[2018-09-05] MEDS: Pantoprazole Sodium 40 MG Tablet PO (10:29)
[2018-09-05] MEDS: Ciprofloxacin 500 MG Tablet PO ×2 (10:29→22:07)
[2018-09-05] MEDS: Docusate Sodium 100 MG Capsule PO ×2 (10:29→22:08)
[2018-09-05 11:54] VITALS: BP 109/57
[2018-09-05] MEDS: amLODIPine 5 MG Tablet PO (11:56)
[2018-09-05 14:28] VITALS: BP 111/67; PULSE 94; RESP 16; TEMP 36.7; O2SAT 100
--- NOTE | 2018-09-05 19:40 | PCM.PN.BLA ---
Progress Note 67-year-old male status post TURP catheter removed today was not able to urinate with straight cath this afternoon for 500 cc. We will keep him overnight see if he can start urinating if not he may have to go home with a catheter tomorrow morning.
[2018-09-05 20:23] VITALS: BP 119/66; PULSE 99; RESP 16; TEMP 36.8; O2SAT 99
[2018-09-05] MEDS: Tamsulosin HCl 0.4 MG Capsule PO (22:08)
[2018-09-06 02:26] VITALS: BP 103/62; PULSE 91; RESP 16; TEMP 36.8; O2SAT 99
[2018-09-06] MEDS: Acetaminophen 325 MG Tablet PO ×3 (02:29→11:12)
[2018-09-06 08:35] VITALS: BP 127/62; PULSE 87; RESP 18; TEMP 36.6; O2SAT 100
[2018-09-06] MEDS: Pantoprazole Sodium 40 MG Tablet PO (08:37)
[2018-09-06] MEDS: Docusate Sodium 100 MG Capsule PO (08:37)
[2018-09-06] MEDS: Ciprofloxacin 500 MG Tablet PO (08:38)
[2018-09-06] MEDS: amLODIPine 5 MG Tablet PO (11:37)
== END 2018-09-06 11:30 | disposition home or self-care (01) ==
LOC: MS3 09-06 06:57 → SDC 09-06 14:33 → MS3 09-06 16:05
PROVIDERS: Admitting Provider Urology; Family Provider Family Medicine; PCP Family Medicine; Referring Provider Urology; Visit Provider Urology
PROC: (CPT 52601; principal; 2018-09-03 15:55)
DX: N40.1 Benign prostatic hyperplasia with lower urinary tract symptoms (principal); N13.8 Other obstructive and reflux uropathy; R33.8 Other retention of urine; Z79.899 Other long term (current) drug therapy; I10 Essential (primary) hypertension; Z87.891 Personal history of nicotine dependence; N13.30 Unspecified hydronephrosis
CPT/HCPCS: 52601; 88305; 96360; 96361; 97161; 97165; 97802; 99218; J7030; J7120; G0378; G0379; J2405

== ENCOUNTER → 2018-10-19 16:23 | Outpatient (CLI) | payer MEDICARE, MEDICAID, SELFPAY ==
[2018-09-03 20:04] VITALS: BMI 17.4
== END ==
PROVIDERS: Family Provider Family Medicine; PCP Family Medicine; Referring Provider Nurse Practitioner Adult Health; Visit Provider Nurse Practitioner Adult Health
DX: R31.9 Hematuria, unspecified (principal)
CPT/HCPCS: 87077; 87086; 87088; 87186

== ENCOUNTER 2019-01-10 13:40 | Emergency (ER) | payer MEDICARE, MEDICAID, SELFPAY ==
[2019-01-10] VITALS (8 sets, daily range): BP systolic 124–175; BP diastolic 73–101; PULSE 82–94; RESP 13–19; TEMP 36.4; O2SAT 96–100; BMI 18.8
--- NOTE | 2019-01-10 13:58 | CT_ITS ---
STUDY: CT BRAIN WITHOUT CONTRAST REASON FOR EXAM: Male, 68 years old. Hypertension. Failure to thrive. RADIATION DOSAGE (If Supplied By Facility): CTDIvol = ( 60.81 ) mGy, DLP = ( 998.67 ) mGycm TECHNIQUE: Transaxial CT imaging of the brain was performed without administration of intravenous contrast material. Individualized dose optimization techniques were used for this CT. COMPARISON: None. FINDINGS: Normal soft tissue structures. Normal calvarium. There is mild cerebral atrophy with widening of the extra-axial spaces and ventricular dilatation. There are areas of decreased attenuation within the white matter tracts of the supratentorial brain, consistent with microvascular disease changes. There are small punctate calcifications of the basal ganglia which are seen in the aging brain as a normal variant. Normal brainstem. Normal cerebellum. There is no intracranial hemorrhage. There are no findings of an acute ischemic infarction. Normal visualized paranasal sinuses. CT/Brain/Head without Contrast IMPRESSION: Chronic involutional changes of the brain. Electronically Signed: Umberto Sun MD at 14:46 EST , Service support ,
--- NOTE | 2019-01-10 13:58 | EKG12_ITS ---
Test Reason : DEPRESSION Blood Pressure : / mmHG Vent. Rate : 087 BPM Atrial Rate : 087 BPM P-R Int : 132 ms QRS Dur : 076 ms QT Int : 390 ms P-R-T Axes : 081 084 074 degrees QTc Int : 469 ms Normal sinus rhythm Normal ECG Confirmed by DEEPAK KASPER, MATEUS ([id number]), editor producer TYRONE MARIN ([id number]) on 01/14/2019 8:17:41 AM Referred By: CRISTEL Confirmed By:MATEUS SOTELO MD
--- NOTE | 2019-01-10 13:59 | ED.RN ---
PT ARRIVES TO ED VIA EMS WITH FLAT AFFECT, STATES THAT HE DOESN'T WANT TO LIVE ANYMORE. PT ARRIVES WITH MEDICATION BOTTLES, ONE FOR TAMSULOSIN 0.4 MG PO QD FILLED IN AUGUST 2018, THE OTHER FOR FLUOXETINE 10 MG PO QD FILLED 12/25/17. QUANTITY FILLED FOR BOTH PRESCRIPTIONS IS 30 CAPSULES. TAMSULOSIN CONTAINS 7 CAPSULES, FLUOXETINE CONTAINS THE MAJORITY OF THE PILLS FILLED. PT ARRIVES WITH FRIEND THAT APPEARS VERY WORRIED.
--- NOTE | 2019-01-10 13:59 | ED.VISSUMM ---
- ER Visit Summary Date of Service: 01/10/19 Chief Complaint: Emotionally depressed with decreased oral intake History of Present Illness: The patient is a 68 M history of depression and BPH. 18 years ago he was admitted to [facility]. He did well in the last several weeks he has been depressed again and not taking his Prozac medication. There is a female friend at bedside states she has been taking him food but he has not been eating it. He has had suicidal thoughts but no plan or attempt. He denies any fever. He denies any vomiting or diarrhea. He denies any headache. When he asked he states this is a spiritual issue. Physical Examination: Older male no acute distress. Vital signs are stable and afebrile. HEENT exam mildly dry mucous membranes. No facial droop. Normal speech. No signs of trauma to his face or scalp. Neck nontender. Lungs clear to auscultation bilaterally. Heart regular rhythm no murmur. Abdomen is soft and nontender. Normal bowel sounds no peritoneal signs. Extremities moves all 4. Calves nontender without edema. Neurologically he is awake and alert with no focal motor deficits. Patient knows month, year and president [facility]. He is following commands. Test Results: CBC normal white count of 7. Humalog creatinine 1.07. EKG sinus rhythm rate 87 with no acute abnormality. Chest x-ray chronic changes but no acute process read both by myself and the radiologist. CT of his brain shows chronic changes. Urinalysis and urine tox are pending. Emergency Department Course and Treatment: She will be an ED mental health evaluation. No additional labs done due to his age. Treatment Plan: forestry worker did evaluate the patient and agrees that he will need a crisis evaluation and most likely admitted. We are awaiting the crisis evaluation. Patient be turned over to the afternoon physician. Urinalysis and urine tox are still pending. Disposition: Transfer to psychiatric facility Impression: Acute on chronic depression Noncompliance with medications Failure to thrive This note was generated with [employer] dictation software. It may contain incorrect words, spelling, and punctuation that were not noted in review of the chart prior to signing ED Disposition - Plan for ED Patient: Referrals: Constantine Garcia MD [NON-STAFF] -
--- NOTE | 2019-01-10 14:02 | ED.DCSUM_ITS ---
- ER Visit Summary Date of Service: 01/10/19 Chief Complaint: Emotionally depressed with decreased oral intake History of Present Illness: The patient is a 68 M history of depression and BPH. 18 years ago he was admitted to [facility] for depression. He did well in the last several weeks he has been depressed again and not taking his Prozac medication. There is a female friend at bedside states she has been taking him food but he has not been eating it. He has had suicidal thoughts but no plan or attempt. He denies any fever. He denies any vomiting or diarrhea. He denies any headache. When he asked he states this is a spiritual issue. Physical Examination: Older male no acute distress. Vital signs are stable and afebrile. HEENT exam mildly dry mucous membranes. No facial droop. Normal speech. No signs of trauma to his face or scalp. Neck nontender. Lungs clear to auscultation bilaterally. Heart regular rhythm no murmur. Abdomen is soft and nontender. Normal bowel sounds no peritoneal signs. Extremities moves all 4. Calves nontender without edema. Neurologically he is awake and alert with no focal motor deficits. Patient knows month, year and president [facility]. He is following commands. Test Results: CBC normal white count of 7. Humalog creatinine 1.07. EKG sinus rhythm rate 87 with no acute abnormality. Chest x-ray chronic changes but no acute process read both by myself and the radiologist. CT of his brain shows chronic changes. Urinalysis and urine tox are pending. Emergency Department Course and Treatment: She will be an ED mental health evaluation. No additional labs done due to his age. Treatment Plan: drafting layout worker did evaluate the patient and agrees that he will need a crisis evaluation and most likely admitted. We are awaiting the crisis evaluation. Patient be turned over to the afternoon physician. Urinalysis and urine tox are still pending. Disposition: Transfer to psychiatric facility Impression: Acute on chronic depression Noncompliance with medications Failure to thrive This note was generated with [employer] dictation software. It may contain incorrect words, spelling, and punctuation that were not noted in review of the chart prior to signing ED Disposition - Plan for ED Patient: Referrals: Constantine Garcia MD [NON-STAFF] -
[2019-01-10 14:12] LABS: Absolute Neutrophil Count 6.4 X10^3/uL (2.0-7.7); Basophil# 0.03 X10^3/uL; Basophil% 0.4 % (0-1); Eosinophil# 0.01 X10^3/uL; Eosinophils% 0.1 % (0-5); Hematocrit 53.1 % (40-54); Hemoglobin 17.4 g/dl (13.0-16.5); Lymphocyte % 10.3 % (19-41); Mean Corp Hgb Conc 32.8 g/gl (32-36); Mean Corpuscular Hgb 31.3 pg (27.0-32.0); Mean Corpuscular Volume 95.5 fL (80-94); Mean Platelet Vol. 9.4 fl (6.2-12.0); Monocyte# 0.51 X10^3/uL; Monocyte% 6.6 % (0-10); Neutrophil # 6.39 X10^3/uL (2.7-7.7); Neutrophil % 82.5 % (47-70); Platelet Count 235 K/mm3 (150-450); RBC Distribution Width CV 12.7 % (11.6-14.6); RBC Distribution Width SD 43.9 fl (35.1-43.9); Red Blood Count 5.56 M/mm3 (4.6-6.2); White Blood Count 7.8 K/mm3 (4.4-11.0)
[2019-01-10 14:13] LABS: POSITIVE COUNT NO; POSITIVE DIFFERENTIAL NO; POSITIVE MORPHOLOGY NO
[2019-01-10 14:19] LABS: Anion Gap 9 (5-15); BUN 21 mg/dL (7-18); BUN/Creat Ratio 19.6 RATIO (10-20); Chloride 110 mmol/L (98-107); Creatinine, Serum 1.07 mg/dL (0.70-1.30); EST Glomerular Filtration Rate 73 mL/min (>60); Est Glom Filt Rate - Afr Amer 88 mL/min (>60); Estimated Creatinine Clearance 43.98 ml/min; Glucose 97 mg/dL (74-106); Potassium 3.9 mmol/L (3.5-5.1); Sodium Level 144 mmol/L (136-145)
--- NOTE | 2019-01-10 14:30 | RAD_ITS ---
STUDY: X-RAY CHEST REASON FOR EXAM: Male, 68 years old. Mental status changes. Depression. TECHNIQUE: Single AP portable view of the chest. COMPARISON: None. FINDINGS: EKG electrodes are seen. Hyperinflation. Increased markings in the right upper lobe suggestive of a right upper lobe scarring. There is retraction superiorly of the hilar regions bilaterally with scarring. There is no demonstrated pleural abnormality. Normal size heart. Normal mediastinum and nayeli. Normal visualized pulmonary arteries. Normal visualized aortic arch and descending thoracic aorta. There are diffuse degenerative changes of the visualized thoracic spine. Normal visualized ribs, clavicles, and shoulders. There is no demonstrated abnormality of the visualized soft tissue structures of the upper abdomen. RAD/Chest 1 View (Portable) IMPRESSION: Hyperinflation. Retraction of the nayeli superiorly with findings suggestive of a right upper lobe scarring and pleural scarring as well. Electronically Signed: Umberto Sun MD at 14:48 EST , Service support ,
[2019-01-10] MEDS: 0.9% Normal Saline 1,000 ML 999 ML IV (15:17)
--- NOTE | 2019-01-10 15:28 | CM.ED ---
Social Work Assessment Reason for Consult: Depression Informant: Brant MARTINEZ Unkefer Information obtained from: Medical record and pt. Pt is alert and oriented x3 and presents with depressed affect as evidenced by delayed processing/speech, slow psychomotor skills and stating he is depressed. Pt is lying in bed completely covered with a blanket and struggles to maintain eye contact. Responds appropriately to inquiries, but some are very delayed. Living Arrangements: Pt reports to live alone in a two-story home with a one-level setup. Denies any access issues and reports to be independent with ADL's. Pt no longer drives and states that his friends assist him with transportation. Stressors: Pt denies stressors or change in relationships. Denies financial concerns. Supports: Pt denies having any family that lives locally. Identifies his friends Veronica (who is present with him today), and Kylie as his primary supports. Mental Health Hx: Pt reports a hx of depression and anxiety. He does not see a counselor or psychiatrist. He is on Fluoxetine (Prozac) as prescribed by his PCP, Dr. Quintero. States that he has not been taking his meds, and he brought them with him. The Fluoxetine was filled on 12/25 and it appears to have not been emptied at all based on the amount of pills remaining in the bottle. Completed the PHQ-9 with the pt who scored a 25/27 indicating severe depression. Pt does report thoughts of killing himself. States that he would kill himself via an overdose, but that this only solves his concern of his bodily life, his soul will still live for eternity. Pt states that the thought of eternity is overwhelming to him. Pt denies having the means to overdose. Can infer with the amount of Prozac remaining that the pt is saving medication however. Pt denies having a plan for when he would complete suicide. Pt was hospitalized in [facility] 18 years ago. States it was not for suicidal ideation, but he does not recall why he was placed there. Discussed with physician and will have crisis evaluate for psychiatric hospitalization despite pt stating he does not have the means as it can be inferred he does with the amount of Prozac not taken and being saved. Substance Use Hx: Pt denies substance abuse history. Intervention(s): PHQ-9 administered and pt scored 25/27 indicating severe depression. Pt's medications have been saved since 12/25 which infers means of overdosing which would be the pt's plan. Crisis consulted for psychiatric hospitalization evaluation. PLAN: Crisis to evaluate for psychiatric hospitalization. MATTY Block, STEPHEN
--- NOTE | 2019-01-10 15:31 | ED.RN ---
INDIRECT FIRE INFANTRYMAN SPOKE WITH PT AND SAID HE STATED HE WAS SUICIDAL WITH POSSIBLE INTENTIONS OF OVERDOSING ON HIS PILLS AT HOME. CRISIS STATES SHE DOES NOT BELIEVE HE IS A CURRENT RISK IN THE HOSPITAL. INDIRECT FIRE INFANTRYMAN SPOKE WITH ABOUT HER FINDINGS AND DR. FAM STATED HE DOES NOT BELIEVE HE IS A CURRENT RISK AND DOES NOT NEED A SITTER. CHARGE NURSE NICOLASA NOTIFIED. WILL CONTINUE TO OBSERVE AND ASSESS.
[2019-01-10 15:38] LABS: Amphetamine Urine VISTA NEGATIVE (<1000 ng/mL); Barbiturate Urine VISTA NEGATIVE (< 200 ng/mL); Benzodiazepine Urine VISTA NEGATIVE (< 200 ng/mL); Cocaine Urine VISTA NEGATIVE (< 300 ng/mL); Ecstacy Urine VISTA NEGATIVE (< 500 ng/mL); Methadone Urine VISTA NEGATIVE (< 300 ng/mL); PCP Urine VISTA NEGATIVE (< 25 ng/mL); THC Urine VISTA NEGATIVE (< 50 ng/mL); Vista UDS pH Range 6
[2019-01-10 16:10] LABS: Color, Urine Yellow (Yellow); Glucose, Dipstick Normal (Normal); Leukocyte Esterase-Dipstick 25 /ul (Negative); Nitrite-Dipstick Negative (Negative); Occult Blood-Urine 10 /ul (Negative); Protein-Dipstick 15 mg/dl (Negative); Urine Bilirubin Dipstick Negative (Negative); Urine Clarity Sl. Cloudy (Clear); Urine Urobilinogen 4 mg/dl (Normal); Urine pH 6.5 (5.0 - 8.0)
[2019-01-10 16:12] LABS: Ketone-Dipstick 150 mg/dl (Negative)
[2019-01-10 16:15] LABS: Bacteria 1+ /hpf (None Seen); Mucous, Urine 3+ /hpf (<or=2+); Red Blood Cells-Urine 0-5 SEEN /hpf (0-5); Squamous Epithelial Cells - UA 0-5 SEEN /hpf (0-5); White Blood Cells 5-10 SEEN /hpf (0-5)
--- NOTE | 2019-01-10 18:36 | ED.RN ---
CALLED [facility] FOR TRANSPORT, THEY ARE UNABLE, [facility] WILL BE ABLE TO BE HERE AT 2100
== END 2019-01-10 20:52 ==
LOC: ED 14:13
PROVIDERS: Emergency Provider Emergency Medicine; Family Provider Family Medicine; PCP Family Medicine
DX: F32.9 Major depressive disorder, single episode, unspecified (principal); Z91.14 Patient's other noncompliance with medication regimen; R62.7 Adult failure to thrive; N40.0 Benign prostatic hyperplasia without lower urinary tract symptoms; Z79.899 Other long term (current) drug therapy
CPT/HCPCS: 70450; 71045; 80048; 80307; 80320; 81001; 85025; 87086; 87088; 93005; 96360; 99285; J7030; A4216; G0480

== ENCOUNTER 2019-10-09 09:28 | Observation (INO) | payer MEDICARE, MEDICAID, SELFPAY ==
[2019-01-10 13:41] VITALS: BMI 18.8
[2019-10-09] VITALS (10 sets, daily range): BP systolic 136–174; BP diastolic 77–97; PULSE 85–104; RESP 14–18; TEMP 36.3–37.2; O2SAT 92–100; BMI 18.8; BMI 20.1
--- NOTE | 2019-10-09 09:34 | RAD_ITS ---
STUDY: X-RAY CHEST REASON FOR EXAM: Male, 69 years old. Syncopal episode. TECHNIQUE: Single AP portable view of the chest. COMPARISON: 10 January 2019 FINDINGS: Hyperinflation is noted similar to prior exam with bilateral apical fibrotic changes also similar to prior. Right upper lobe laterally likely scarring is noted. There is no demonstrated pleural abnormality. Normal size heart. Normal mediastinum and nayeli. Normal visualized pulmonary arteries. Normal visualized aortic arch and descending thoracic aorta. Normal visualized thoracic spine. Normal visualized ribs, clavicles, and shoulders. There is no demonstrated abnormality of the visualized soft tissue structures of the upper abdomen. RAD/Chest 1 View (Portable) IMPRESSION: Overall similar appearance compared to previous exam with no evidence of acute process. Electronically Signed: Abdullahi Reed DO at 9:56 EST , Service support ,
--- NOTE | 2019-10-09 09:34 | EKG12_ITS ---
Test Reason : SYNCOPE/POST-CPR Blood Pressure : / mmHG Vent. Rate : 082 BPM Atrial Rate : 082 BPM P-R Int : 144 ms QRS Dur : 080 ms QT Int : 374 ms P-R-T Axes : 059 068 056 degrees QTc Int : 436 ms Normal sinus rhythm Normal ECG Confirmed by DEEPAK KASPER, MATEUS ([id number]), book or script editor FABRICIO BLAKELY ([id number]) on 10/11/2019 2:23:47 PM Referred By: Filemon Rodriguez Confirmed By:MATEUS SOTELO MD
--- NOTE | 2019-10-09 09:41 | ED.VISSUMM ---
- ER Visit Summary Date of Service: 10/09/19 Chief Complaint: [Syncope] History of Present Illness: The patient is a 69 M [presents to the emergency department with complaint of a syncopal episode while in [employer] today. Patient remembers feeling hot and feeling faint. Patient currently had a syncopal episode while in [employer]ism and a physician in attendance in [employer] she noted that patient had a thready pulse and was unresponsive therefore performed CPR on the patient. Patient has no history of syncope. He describes some chest soreness from where they pushed on his chest. He denies racing heart. Patient has history of depression and history of BPH. Patient denies any headache. He denies any focal weakness.] Physical Examination: [HEENT-PERRLA, EOMI. Cranial nerves II through XII grossly intact. TMs clear. Mucous membranes moist. No adenopathy. Cardiovascular-regular rate and rhythm without murmur or ectopy Lungs-clear to auscultation, chest wall stable without crepitus or subcu emphysema Abdomen-normoactive bowel sounds, soft, nontender, no rebound or rigidity, no peritoneal signs. Neuro ixlr-[id number]-bird and heel martinez testing within normal limits, negative Romberg, negative pronator drift, fundi benign. NIH stroke scale 0. Extremities-intact ?4, normal range of motion, normal pulses, atraumatic] Test Results: [EKG obtained arrival shows sinus rhythm with a ventricular rate of 82 bpm with no acute ST segment changes.] CBC with differential obtained was normal. Chemistries normal. Troponin is less than 0.15. Chest x-ray showed nothing acute. Emergency Department Course and Treatment: [Patient was given normal saline.] Treatment Plan: [Admit for observation..] Disposition: [Admit] Impression: [Syncope-etiology uncertain] This note was generated with [employer] dictation software. It may contain incorrect words, spelling, and punctuation that were not noted in review of the chart prior to signing ED Disposition - Plan for ED Patient: Referrals: Filemon Quintero MD [Primary Care Provider] -
[2019-10-09 09:44] LABS: Absolute Lymphocyte Count 0.86 X10^3/uL (0.83-4.51); Absolute Neutrophil Count 6.4 X10^3/uL (2.0-7.7); Basophil# 0.03 X10^3/uL; Basophil% 0.4 % (0-1); Eosinophil# 0.06 X10^3/uL; Eosinophils% 0.8 % (0-5); Hematocrit 47.1 % (40-54); Hemoglobin 15.8 g/dL (13.0-16.5); Lymphocyte # 0.86 X10^3/ul (4.0); Lymphocyte % 10.9 % (19-41); Mean Corp Hgb Conc 33.5 g/dL (32-36); Mean Corpuscular Hgb 33.1 pg (27.0-32.0); Mean Corpuscular Volume 98.7 fL (80-94); Monocyte# 0.46 X10^3/uL; Monocyte% 5.8 % (0-10); NRBC Flagged by Analyzer 0 % (0-5); Neutrophil # 6.43 X10^3/uL (2.7-7.7); Neutrophil % 81.2 % (47-70); Platelet Count 216 K/mm3 (150-450); RBC Distribution Width CV 12.1 % (11.6-14.6); RBC Distribution Width SD 44.3 fl (35.1-43.9); Red Blood Count 4.77 M/mm3 (4.6-6.2); White Blood Count 7.9 K/mm3 (4.4-11.0)
[2019-10-09] MEDS: 0.9% Normal Saline 1,000 ML 150 ML IV (10:00)
[2019-10-09 10:06] LABS: Anion Gap 7 (5-15); BUN 18 mg/dL (7-18); BUN/Creat Ratio 15.3 RATIO (10-20); Calcium,Total 8.8 mg/dL (8.5-10.1); Chloride 106 mmol/L (98-107); Creatinine, Serum 1.18 mg/dL (0.70-1.30); EST Glomerular Filtration Rate 65 mL/min (>60); Est Glom Filt Rate - Afr Amer 78 mL/min (>60); Estimated Creatinine Clearance 44.34 ml/min; Glucose 147 mg/dL (74-106); Sodium Level 141 mmol/L (136-145)
--- NOTE | 2019-10-09 11:22 | ECHOD_ITS ---
Reason For Study: SYNCOPE Procedure This was a 2D Doppler, Color Flow transthoracic echocardiogram. Exam performed in department. Left Ventricle Normal LV size. Left ventricular systolic function is normal. The estimated ejection fraction is 61 %. Stage 1 diastolic dysfunction. No regional wall motion abnormalities noted. Right Ventricle Normal RV size. Normal systolic function. Atria Normal left atrium. Normal right atrium. Mitral Valve Normal mitral valve. Tricuspid Valve Normal tricuspid valve. Aortic Valve Normal aortic valve. Pulmonic Valve Normal pulmonic valve. Great Vessels Normal aortic root. The pulmonary artery is normal size. Normal inferior vena cava. Pericardium/Pleural No pericardial effusion. MMode/2D Measurements & Calculations LVIDd: 4.3 cm IVSd: 1.1 cm Ao root diam: 3.4 cm LVIDs: 2.9 cm LVPWd: 1.1 cm RVDd: 2.8 cm FS: 33.4 % LAV(MOD-bp): 44.6 ml LA A4 area: 11.0 cm2 LA dimension(2D): 2.5 cm LAV(MOD-bp) Indexed: 27.4 ml/m2 LAV(MOD-sp2): 53.1 ml LAV(MOD-sp4): 25.5 ml Time Measurements MV dec time: 0.21 sec Doppler Measurements & Calculations MV E max kaden: 64.4 cm/sec Lat Peak E' Kaden: 11.2 cm/sec Med Peak E' Kaden: 7.4 cm/sec MV A max kaden: 71.2 cm/sec E/E' lat: 5.8 E/E' med: 8.7 MV E/A: 0.90 Ao V2 max: 112.6 cm/sec LV V1 max: 103.4 cm/sec PA V2 max: 67.6 cm/sec Ao max P.1 mmHg LV V1 max P.3 mmHg Interpretation Summary Normal LV size. Left ventricular systolic function is normal. The estimated ejection fraction is 61 %. Normal RV size. Normal systolic function. Stage 1 diastolic dysfunction. Ordering Physician: Filemon Rodriguez Referring Physician: Filemon Quintero Performed By: Shi Mcarthur, BUNNY, RVT
--- NOTE | 2019-10-09 12:46 | PCM.HP.STD ---
Problem List (1) Dental caries extending into pulp Status: Resolved Comment: Non restorable dentition (2) Urinary retention due to benign prostatic hyperplasia Status: Resolved (3) Hydronephrosis Status: Acute Qualifiers: (4) Hypertension Status: Chronic Qualifiers: History of Present Illness Date of Admission: 10/09/19 Chief Complaint: Syncopal episode. The patient is a 69 year old M following episode of syncope which occurred while at synagogue today. He has a past medical history of hypertension and depression. Patient reports he was standing at synagogue when he began to feel lightheaded and felt like he was going to pass out. He denies palpitations, chest discomfort or other associated symptoms. Apparently bystanders were unable to feel a pulse and began CPR. Patient states he was aware of chest compressions being performed. Reports his chest is now sore. Patient states he has had an episode similar to this remotely however he was able to sit down when he initially became symptomatic and did not pass out at that time. He denies other history of syncope or cardiac history. Currently feels well. Past Medical History Past Medical History (Chronic Problems): Chronic Problems Hypertension (Chronic) Allergies Penicillins Allergy (Verified 10/09/19 09:34) Unknown Home Medications: Ambulatory Orders Medication Instructions Recorded Risperidone [Risperdal] 1 mg PO QHS 10/09/19 Surgical History: - - TURP, multiple dental extractions Psychiatric History: Anxiety Lives: Alone Smoking Status: Former smoker Alcohol: None Drugs: None - *Family History Maternal History Items: Hypertension Paternal History Items: - - Denies known paternal medical history including cardiac history. Review of Systems Constitutional: Denies: Chills, Fever, Weight Change HEENT: Denies: Head Aches, Sinus Congestion, Sinus Drainage Cardiovascular: Reports: Syncope. Denies: Chest Pain, Edema, Light Headedness, Palpitations Respiratory: Denies: Cough, Shortness of breath at rest, Sputum production Gastrointestinal: Denies: Abdominal Pain, Nausea, Vomiting Genitourinary: Denies: Dysuria Musculoskeletal: Denies: Joint Pain, Joint Tenderness Skin: Denies: Rash, Wounds Neurological: Denies: Numbness, Tingling, Focal weakness Psychiatric: Reports: Anxiety, Depression. Denies: Homicidal Ideations, Suicidal Ideations Hematologic/ Lymphatic: Denies: Easy Bruising, Easy Bleeding VTE Information - Inpt Only VTE Present on Admission: No VTE Mechan Device Prophylaxis: None VTE Pharm Prophylaxis ordered?: Yes - Physical Exam Vitals/I&O's: Vital Signs Temp Pulse Resp BP Pulse Ox 98.6 F 103 H 18 156/85 H 100 10/09/19 11:28 10/09/19 11:28 10/09/19 11:28 10/09/19 11:28 10/09/19 11:28 Oxygen Delivery Method Room Air Weight: 121 lb 0.54 oz Body Mass Index (BMI) 20.1 General: Alert, Oriented x3, Cooperative HEENT: Atraumatic, PERRLA, EOMI, Normocephalic Neck: Supple, No JVD, Negative Carotid Bruits Lungs: Clear to auscultation, Normal air movement Cardiovascular: Regular rate, Regular Rhythm, Normal S1, Normal S2, No murmurs Abdomen: Bowel Sounds Present, Soft, Non Tender, Non-Distended Extremities: No clubbing, No cyanosis, No edema Skin: No rashes, No breakdown Musculoskeletal: No Tenderness to Palpation of Joints or Extremities Neurological: Cranial nerves II-XII grossly intact, Neuro grossly intact Psych/Mental Status: Normal Affect, Appropriate Laboratory Results 10/09/19 09:35: WBC 7.9, RBC 4.77, Hgb 15.8, Hct 47.1, MCV 98.7 H, MCH 33.1 H, MCHC 33.5, RDW Std Deviation 44.3 H, RDW Coeff of Long 12.1, Plt Count 216, MPV 9.0, Immature Gran % (Auto) 0.900, Neut % (Auto) 81.2 H, Lymph % (Auto) 10.9 L, [place] % (Auto) 5.8, Eos % (Auto) 0.8, Baso % (Auto) 0.4, Absolute Neuts (auto) 6.4, Absolute Lymphs (auto) 0.86, Nucleated RBC % 0 10/09/19 09:35: Sodium 141, Potassium 4.0, Chloride 106, Carbon Dioxide 28.0, Anion Gap 7, BUN 18, Creatinine 1.18, Estim Creat Clear Calc 44.34, Est GFR (MDRD) Af Amer 78, Est GFR (MDRD) Non-Af 65, BUN/Creatinine Ratio 15.3, Glucose 147 H, Calcium 8.8, Troponin I < 0.015 10/09/19 12:05: Troponin I < 0.015 Current Medications Acetaminophen (Tylenol) 650 mg PO Q6H PRN PRN PRN Reason: Pain Score 1-3/Temp > 100.7 F Heparin Sodium (Porcine) (Heparin Na) 5,000 unit SC Q12 [facility] Sodium Chloride () 250 mls @ 15 mls/hr IV .[id number] PRN PRN Reason: Saline Flush Risperidone (Risperdal) 1 mg PO QHS [facility] Sodium Chloride () 10 - 40 ml IV UD PRN PRN Reason: SALINE FLUSH Assessment/Plan All Active Problems Hydronephrosis (Acute) Dental caries extending into pulp (Resolved) Urinary retention due to benign prostatic hyperplasia (Resolved) 1. Syncope-suspect vasovagal. Trend enzymes. EKG without acute ischemia. Obtain echocardiogram in a.m. Check orthostatic vitals. 2. Hypertension-stable, no longer on regimen. 3. Anxiety/Depression-continue home risperidone regimen. DVT prophylaxis-heparin subcu. This patient was seen by SABINO Whaley under the supervision of Dr. Rodriguez.
[2019-10-09] MEDS: RisperiDONE 1 MG Tablet PO (21:23)
[2019-10-09] MEDS: Heparin Injection (Vial) 5,000 UNIT/ML VIAL 5000 UNIT SC (21:23)
[2019-10-10 02:57] VITALS: PULSE 80
[2019-10-10 03:20] VITALS: BP 124/74; BP 125/77; BP 132/78; PULSE 101; PULSE 85; PULSE 89; RESP 16; TEMP 36.7; O2SAT 96
[2019-10-10 07:01] VITALS: PULSE 96
[2019-10-10] MEDS: Heparin Injection (Vial) 5,000 UNIT/ML VIAL 5000 UNIT SC (09:18)
[2019-10-10 09:20] VITALS: BP 136/72; PULSE 88; RESP 16; TEMP 36.6; O2SAT 97
--- NOTE | 2019-10-10 11:19 | DCINST_ITS ---
You will use the following diet at home:: No restrictions Discharge Activity: Return to Normal Activity Call your doctor if you observe: Shortness of breath, Dizziness, Fainting spells, Chest pain Allergies/Adverse Reactions: Allergies Penicillins Allergy (Verified 10/09/19 09:34) Unknown Medications to take at Discharge Risperidone [Risperdal] 1 mg PO QHS 10/09/19 Primary Care Physician: Filemon Quintero MD [Primary Care Provider] - Please follow up with your Primary Care Physician in: 1 Week Test Results: Test results from this visit will be discussed in further detail at your follow- up appointment, if applicable. Proposed Discharge Date: 10/10/19
--- NOTE | 2019-10-10 11:21 | PCM.DC.SUM ---
Discharge Date and Diagnosis Date of Admission: 10/09/19 Date of Discharge: 10/10/19 - Primary Discharge Diagnosis 1. Vasovagal syncope 2. History of hypertension 3. Anxiety with depression - Secondary Discharge Diagnosis Chronic Problems Hypertension (Chronic) Hospital Course and Treatment Imaging Results: Diagnostic Data Chest X-Ray 10/09/19 09:34 IMPRESSION: Overall similar appearance compared to previous exam with no evidence of acute process. Electronically Signed: Abdullahi Reed, DO at 9:56 EST , Service support , Operations: None Procedures: 2-D Echocardiogram Summary of Care Provided: The patient is a 69 year old M admitted 10/09/2019 following syncopal episode. 1. Vasovagal syncope-enzymes negative. EKG without acute ischemia. Orthostatic vitals negative. Echocardiogram pending and will be reviewed prior to patient being discharged home. Follow-up with primary care provider in 1 week. 2. Hypertension-stable, no longer on regimen. 3. Anxiety/Depression-continue home risperidone regimen. General: Alert, Oriented x3, Cooperative HEENT: Atraumatic, PERRLA, EOMI, Normocephalic Neck: Supple, No JVD, Negative Carotid Bruits Lungs: Clear to auscultation, Normal air movement Cardiovascular: Regular rate, Regular Rhythm, Normal S1, Normal S2, No murmurs Abdomen: Bowel Sounds Present, Soft, Non Tender, Non-Distended Extremities: No clubbing, No cyanosis, No edema Skin: No rashes, No breakdown Musculoskeletal: No Tenderness to Palpation of Joints or Extremities Neurological: Cranial nerves II-XII grossly intact, Neuro grossly intact Psych/Mental Status: Normal Affect, Appropriate Patient seen and examined prior to discharge. Physical assessment as noted above. Patient is stable for discharge with follow up recommendations as noted above. This patient was seen by SABINO Whaley under the supervision of Dr. Rodriguez. - Physical Exam Vitals/I&O's: Vital Signs Temp Pulse Resp BP Pulse Ox 97.8 F 88 16 136/72 H 97 10/10/19 09:20 10/10/19 09:20 10/10/19 09:20 10/10/19 09:20 10/10/19 09:20 Oxygen Delivery Method Room Air Weight: 121 lb 0.54 oz Body Mass Index (BMI) 20.1 Orthostatic Vital Signs Start: 10/10/19 03:43 Freq: q24h Status: Active Protocol: Activity Type Activity Date Activity User E-Sign Co-Sign Detail Recorded Client Recorded Date Recorded By Document 10/10/19 03:20 CS [id number] 10/10/19 03:44 CS 10/10/19 03:20 Orthostatic Vitals Standing -Blood Pressure (90/60-120/80) 124/74 H -Extremity Use Left Arm -Pulse Rate (60-100) 101 H Sitting -Blood Pressure (90/60-120/80) 132/78 H -Extremity Use Left Arm -Pulse Rate (60-100) 85 Lying -Blood Pressure (90/60-120/80) 125/77 H -Extremity Use Left Arm -Pulse Rate (60-100) 89 Intake and Output for Last 24 Hours 10/08/19 10/09/19 10/10/19 23:59 23:59 23:59 Intake Total 835 / 835 100 / 100 Output Total 450 / 450 Balance 835 / 835 -350 / -350 Laboratory Results 10/09/19 12:05: Troponin I < 0.015 10/09/19 15:34: Troponin I < 0.015 Current Medications Acetaminophen (Tylenol) 650 mg PO Q6H PRN PRN PRN Reason: Pain Score 1-3/Temp > 100.7 F Heparin Sodium (Porcine) (Heparin Na) 5,000 unit SC Q12 [facility] Last Admin: 10/10/19 09:18 Dose: 5,000 unit Documented by: Sodium Chloride () 250 mls @ 15 mls/hr IV .[id number] PRN PRN Reason: Saline Flush Risperidone (Risperdal) 1 mg PO QHS [facility] Last Admin: 10/09/19 21:23 Dose: 1 mg Documented by: Sodium Chloride () 10 - 40 ml IV UD PRN PRN Reason: SALINE FLUSH Discharge Diet: No Restrictions Discharge Activity: Return to Normal Activity Call your doctor if you observe: Shortness of breath, Dizziness, Fainting spells, Chest pain Home Medications: Medications to take at Discharge Risperidone [Risperdal] 1 mg PO QHS 10/09/19 Primary Care Physician: Filemon Quintero MD [Primary Care Provider] - Please follow up with your Primary Care Physician in: 1 Week Disposition: Home Minutes spent on discharge:: 35 Patient Condition:: Stable Medical Necessity - Tobacco Use Smoking Status: Former smoker Meaningful Use Info Meaningful Use Diagnoses (Choose all that apply): None applicable
--- NOTE | 2019-10-10 11:22 | CASEMGMT ---
MICHELLE CHUNG NOTE: To room to talk with pt. Pt resting in bed. A/Ox3. Reviewed ALVES form with pt. Denies having any questions. ALVES form signed by pt, copy made and placed on chart, and original given to pt. Tiana HE RN CM
--- NOTE | 2019-10-10 11:26 | PHA.DC.MR ---
Pharmacy Service has performed discharge medication reconciliation for this patient. Home Medications Risperidone [Risperdal] 1 mg PO QHS 10/09/19 The patient's discharge medication list was reviewed for discrepancies and discrepancies were resolved.
--- NOTE | 2019-10-10 13:00 | CASEMGMT ---
This RN CM was requested to room by pt family member. Once this RN CM entered room, pt's friend from [facility] introduced herself and then proceeded to relay her concerns that pt should have been made an inpt from the get-go. She states that she would never have let him be admitted as an observation and she states that they were told in the ED that pt was staying to 'be admitted.' This RN CM advised her that pt was admitted as observation for syncope which is not an inpt diagnosis. Pt's friend states that she used to work for [employer] and 'what happened to the MCR 23 hour rule' and that pt has been here 'for 28 hours at this time.' This RN CM advised her that ALVES form was given after the 24 hours mario. She infers that pt has straight MCR and then [employer] secondary and that he can't have a bill because he does not have the money to pay for it. This RN CM checks pt insurance on chart and pt has [employer] primary and [facility] [employer] secondary and pt/friend updated at this time. This RN CM advised pt/friend that [facility] [employer] would cover most, if not all of what [employer] did not and pt voices understanding. Pt's friend states 'Yes, do you know why it(ADDIE) will cover it because you and I are paying for it.' Pt voices no concerns during the entire conversation and is pleasant at this time. Pt's friend states that she will be contacting [employer] 'with her poison pen' if the pt gets a bill at all and that she would have just taken him home yesterday if she would have known that he was an observation. This RN CM advised her/pt that the ED would have discharged pt if they felt he was ok for discharge and if they felt pt didn't need any further testing. Pt's friend was provided with [employer] rep number per request at this time. Pt/friend voice no further questions/concerns/needs at this time. SStgael RN JULIET
[2019-10-10 14:52] VITALS: PULSE 95
[2019-10-10 15:00] VITALS: BP 148/86; PULSE 95; RESP 16; TEMP 37; O2SAT 97
== END 2019-10-10 11:19 | disposition home or self-care (01) ==
LOC: ED 09:48 → PCU 11:04
PROVIDERS: Admitting Provider Internal Medicine; Emergency Provider Emergency Medicine; Family Provider Family Medicine; PCP Family Medicine; Referring Provider Internal Medicine; Visit Provider Internal Medicine
DX: R55 Syncope and collapse (principal); R29.700 NIHSS score 0; N40.1 Benign prostatic hyperplasia with lower urinary tract symptoms; R33.8 Other retention of urine; K02.9 Dental caries, unspecified; N13.30 Unspecified hydronephrosis; I10 Essential (primary) hypertension; F41.8 Other specified anxiety disorders; Z79.899 Other long term (current) drug therapy; Z87.891 Personal history of nicotine dependence
CPT/HCPCS: 36415; 71045; 80048; 84484; 85025; 93005; 93306; 96360; 96361; 96372; 99218; 99285; J7030; A4216; G0378

== ENCOUNTER 2020-03-09 13:53 | Emergency (ER) | payer MEDICARE, MEDICAID, SELFPAY ==
[2019-10-09 11:28] VITALS: BMI 20.1
[2020-03-09 13:54] VITALS: BP 122/92; PULSE 85; RESP 16; TEMP 36.3; O2SAT 99; BMI 20.6
--- NOTE | 2020-03-09 14:22 | EKG12_ITS ---
Test Reason : SUICIDAL Blood Pressure : / mmHG Vent. Rate : 080 BPM Atrial Rate : 080 BPM P-R Int : 116 ms QRS Dur : 080 ms QT Int : 368 ms P-R-T Axes : 044 069 054 degrees QTc Int : 424 ms Normal sinus rhythm Normal ECG Confirmed by MATEUS SOTELO MD ([id number]), film and video editor TYRONE MARIN ([id number]) on 03/12/2020 8:39:25 AM Referred By: HEVER Confirmed By:MATEUS SOTELO MD
[2020-03-09 14:29] LABS: Absolute Lymphocyte Count 0.92 X10^3/uL (0.83-4.51); Absolute Neutrophil Count 5.8 X10^3/uL (2.0-7.7); Basophil# 0.02 X10^3/uL; Basophil% 0.3 % (0-1); Eosinophil# 0.02 X10^3/uL; Eosinophils% 0.3 % (0-5); Lymphocyte # 0.92 X10^3/ul (4.0); Lymphocyte % 12.6 % (19-41); Mean Corp Hgb Conc 32.7 g/dL (32-36); Mean Corpuscular Hgb 32.5 pg (27.0-32.0); Mean Corpuscular Volume 99.4 fL (80-94); Mean Platelet Vol. 8.7 fl (6.2-12.0); Monocyte# 0.52 X10^3/uL; Monocyte% 7.1 % (0-10); NRBC Flagged by Analyzer 0 % (0-5); Neutrophil # 5.81 X10^3/uL (2.7-7.7); Neutrophil % 79.4 % (47-70); Platelet Count 256 K/mm3 (150-450); RBC Distribution Width CV 12.7 % (11.6-14.6); RBC Distribution Width SD 46.2 fl (35.1-43.9); Red Blood Count 4.93 M/mm3 (4.6-6.2); White Blood Count 7.3 K/mm3 (4.4-11.0)
[2020-03-09 14:37] LABS: Anion Gap 5 (5-15); BUN 14 mg/dL (7-18); BUN/Creat Ratio 13.5 RATIO (10-20); Calcium,Total 8.9 mg/dL (8.5-10.1); Chloride 108 mmol/L (98-107); Creatinine, Serum 1.04 mg/dL (0.70-1.30); EST Glomerular Filtration Rate 75 mL/min (>60); Est Glom Filt Rate - Afr Amer 90 mL/min (>60); Estimated Creatinine Clearance 51.79 ml/min; Glucose 97 mg/dL (74-106); Potassium 3.7 mmol/L (3.5-5.1); Sodium Level 141 mmol/L (136-145)
[2020-03-09 15:52] LABS: Bacteria 0 SEEN /hpf (None Seen); Mucous, Urine 0 SEEN /hpf (<or=2+)
[2020-03-09 15:53] VITALS: BP 165/92; PULSE 88; RESP 16; TEMP 36.9; O2SAT 98
[2020-03-09 15:55] LABS: Color, Urine Yellow (Yellow); Glucose, Dipstick Normal (Normal); Ketone-Dipstick 15 mg/dl (Negative); Leukocyte Esterase-Dipstick Negative /ul (Negative); Nitrite-Dipstick Negative (Negative); Occult Blood-Urine Negative /ul (Negative); Protein-Dipstick Negative (Negative); Urine Bilirubin Dipstick Negative (Negative); Urine Clarity Clear (Clear); Urine Urobilinogen Normal (Normal)
--- NOTE | 2020-03-09 15:59 | ED.VIS.PSYCH ---
History of Present Illness Chief Complaint: Suicidal Informant: Patient Onset: Days Context: Gradual Onset Timing: Continuous Associated Symptoms: Suicidal Thoughts Specific plan (suicidal thought): No plan Narrative: Patient is a 69-year-old male with history of schizophrenia presenting with worsening suicidal thoughts. He states he feels that he should kill himself he does not have a plan. Patient denies any history of suicide attempts. He states he has been off of his risperidone for 1 month. Patient states he has been off his Risperdal because he cannot arrange transportation to picking tech his medications. Patient called crisis today which instructed him to come to the emergency room. Patient states he does not live home alone. He denies any physical complaints. He denies any homicidal ideations or hallucinations. Past Medical History - Allergies and Home Meds Allergies/Adverse Reactions: Allergies Penicillins Allergy (Verified 03/09/20 13:57) Unknown Primary Care Physician: Filemon Quintero MD [Primary Care Provider] - Past Medical History: - - Schizophrenia Surgical History: noncontributory, - - TURP, multiple dental extractions Lives: Alone Smoking Status: Former smoker - Family History Maternal Family History: Reports: Hypertension Paternal Family History: Reports: - - Denies known paternal medical history including cardiac history. Review of Systems General: Denies: Chills, Fever, Sweats Eyes: Denies: Visual changes - bilaterally, Diplopia ENT: Denies: Rhinorrhea, Sore throat Cardiovascular: Denies: Chest pain, Palpitations Respiratory: Denies: Dyspnea, Cough, Dyspnea on exertion Gastrointestinal: Denies: Abdominal pain, Nausea, Vomiting, Diarrhea, Melena, Hematochezia Genitourinary: Denies: Dysuria, Hematuria, Frequency Musculoskeletal: Denies: Back pain, Extremity Pain Skin: Denies: Rash, Wounds Neurological: Denies: Headache, Weakness, Numbness Psych: Reports: Suicidal thoughts Physical Exam Vital Signs/Narrative: Vital Signs Temp Pulse Resp BP Pulse Ox 03/09/20 13:54 97.3 F L 85 16 122/92 H 99 Inital Vital Signs reviewed: Yes General: Well nourished, Well developed Head: Normocephalic, Atraumatic Eyes: Perrl, EOMI ENT: Moist mucous membranes, No rhinorrhea Neck: Supple, Nontender Cardiovascular: Regular rate, Regular rhythm, No murmurs Respiratory: No distress, CTA bilaterally, Chest nontender Abdomen: Soft, Nontender, Nondistended, Normal bowel sounds Back: Nontender, Normal Inspection Extremities: Nontender, No Edema Skin: Normal color, No rash Neurological: Alert, Oriented x3, Cranial nerves II-XII grossly intact, Normal Strength, Normal Sensation Psych: Normal Speech Pattern, Normal Stable Appropriate Affect, Suicidal thoughts. Negative for: Homicidal thoughts, Hallucinations, Delusions Diagnostic/Tx/Re-eval Laboratory Data 03/09/20 03/09/20 03/09/20 14:13 14:13 14:13 WBC 7.3 RBC 4.93 Hgb 16.0 Hct 49.0 MCV 99.4 H MCH 32.5 H MCHC 32.7 RDW Std Deviation 46.2 H RDW Coeff of Long 12.7 Plt Count 256 MPV 8.7 Immature Gran % (Auto) 0.300 Neut % (Auto) 79.4 H Lymph % (Auto) 12.6 L [place] % (Auto) 7.1 Eos % (Auto) 0.3 Baso % (Auto) 0.3 Absolute Neuts (auto) 5.8 Absolute Lymphs (auto) 0.92 Nucleated RBC % 0 Sodium 141 Potassium 3.7 Chloride 108 H Carbon Dioxide 28.0 Anion Gap 5 BUN 14 Creatinine 1.04 Estim Creat Clear Calc 51.79 Est GFR (MDRD) Af Amer 90 Est GFR (MDRD) Non-Af 75 BUN/Creatinine Ratio 13.5 Glucose 97 Calcium 8.9 Urine Color Urine Clarity Urine pH Ur Specific [place] Urine Protein Urine Glucose (UA) Urine Ketones Urine Occult Blood Urine Nitrite Urine Bilirubin Urine Urobilinogen Ur Leukocyte Esterase Urine RBC Urine WBC Ur Squamous Epith Cells Urine Bacteria Urine Mucus Ur Drug Screen Comment Ethyl Alcohol 5.0 03/09/20 03/09/20 15:45 15:45 WBC RBC Hgb Hct MCV MCH MCHC RDW Std Deviation RDW Coeff of Long Plt Count MPV Immature Gran % (Auto) Neut % (Auto) Lymph % (Auto) [place] % (Auto) Eos % (Auto) Baso % (Auto) Absolute Neuts (auto) Absolute Lymphs (auto) Nucleated RBC % Sodium Potassium Chloride Carbon Dioxide Anion Gap BUN Creatinine Estim Creat Clear Calc Est GFR (MDRD) Af Amer Est GFR (MDRD) Non-Af BUN/Creatinine Ratio Glucose Calcium Urine Color Yellow Urine Clarity Clear Urine pH 8.0 Ur Specific [place] 1.010 Urine Protein Negative Urine Glucose (UA) Normal Urine Ketones 15 H Urine Occult Blood Negative Urine Nitrite Negative Urine Bilirubin Negative Urine Urobilinogen Normal Ur Leukocyte Esterase Negative Urine RBC 0-5 SEEN Urine WBC 0-5 SEEN Ur Squamous Epith Cells 0-5 SEEN Urine Bacteria 0 SEEN Urine Mucus 0 SEEN Ur Drug Screen Comment Ethyl Alcohol - Rhythm Strip Rhythm Strip: Sinus Rhythm Rate: 80 Ectopy: None - EKG Initial EKG Interpretation: Sinus Rhythm, - - Normal sinus rhythm at a rate of 80 Normal intervals Normal axis Normal ST segments Patient is evaluated for worsening suicidal thoughts. He has been off his risperidone for a month. Patient does live home alone. Patient is medically cleared. He is evaluated by crisis who is concerned that patient is a suicide risk. When asked what his likelihood of suicide on a scale of 1-10 is patient states he is an 8 out of 10. I think patient would benefit greatly from inpatient psychiatric treatment. Patient's pink slip is filled out by myself. Patient is hemodynamically stable and cooperative while he is in the emergency room. Patient is accepted by at [facility]. He will be transferred there via medical transport. ED Disposition - Plan for ED Patient: Diagnosis: Suicidal thoughts, Noncompliance with medication regimen Referrals: Filemon Quintero MD [Primary Care Provider] -
[2020-03-09 16:13] LABS: Red Blood Cells-Urine 0-5 SEEN /hpf (0-5); White Blood Cells 0-5 SEEN /hpf (0-5)
[2020-03-09 16:14] LABS: Squamous Epithelial Cells - UA 0-5 SEEN /hpf (0-5)
--- NOTE | 2020-03-09 16:42 | ED.RN ---
PT IS BEING PINK SLIPPED PER [facility] WITH [facility]ISIS; HE LEAVES AT 5PM; AGUSTIN AND TRAINEE BORIS WILL TAKE OVER PLACEMENT
--- NOTE | 2020-03-09 18:14 | ED.RN ---
RE-FAXED PAPERWORK TO [facility] AND ALSO TO [facility] FOR REFERRAL
[2020-03-09 19:15] LABS: Amphetamine Urine VISTA NEGATIVE (<1000 ng/mL); Barbiturate Urine VISTA NEGATIVE (< 200 ng/mL); Benzodiazepine Urine VISTA NEGATIVE (< 200 ng/mL); Cocaine Urine VISTA NEGATIVE (< 300 ng/mL); Ecstacy Urine VISTA NEGATIVE (< 500 ng/mL); Methadone Urine VISTA NEGATIVE (< 300 ng/mL); PCP Urine VISTA NEGATIVE (< 25 ng/mL); THC Urine VISTA NEGATIVE (< 50 ng/mL); Vista UDS pH Range 7
[2020-03-09 20:47] VITALS: BP 154/93; PULSE 95; RESP 20; TEMP 36.9; O2SAT 95
[2020-03-09 20:48] VITALS: BP 154/93; PULSE 95; RESP 20; TEMP 36.9; O2SAT 95
== END 2020-03-09 21:32 ==
LOC: ED 15:52
PROVIDERS: Emergency Provider Emergency Medicine; PCP Family Medicine
DX: R45.851 Suicidal ideations (principal); Z91.14 Patient's other noncompliance with medication regimen; F20.9 Schizophrenia, unspecified; Z87.891 Personal history of nicotine dependence
CPT/HCPCS: 80048; 80307; 80320; 81001; 85025; 93005; 99284; G0480

== ENCOUNTER 2021-12-24 08:41 | Emergency (ER) | payer MEDICARE, MEDICAID, SELFPAY ==
[2021-12-24 08:42] VITALS: BP 116/69; PULSE 110; RESP 16; O2SAT 98
[2021-12-24 08:46] VITALS: BP 133/67; PULSE 119; RESP 16; TEMP 37; O2SAT 98; BMI 20.9
--- NOTE | 2021-12-24 09:11 | ED.VIS.FALL ---
HPI HPI - Fall History of Present Illness Chief Complaint: Fall Informant: patient and EMS Narrative Narrative: Patient fell outside in the snow, he states he was walking back home from [email or web address] and noticed that his pants were falling down so he bent over some in order to hike them up, and slipped in the snow and fell. He laid there for 10 minutes or so and was unable to get up, he states he has no injury but could not get up because it was slippery. He denies any prodromal symptoms. He lives alone and is healthy, he takes risperidone. He denies any aspirin or anticoagulant medications. He is unvaccinated against Covid, he states he had it over a year ago, and he states he has been coughing for the past 4 or 5 days without any other symptoms. [facility] Medical History Anxiety Depression Former smoker Hypertension Home Medications risperidone 1 mg PO QHS 10/09/19 [History Last Taken 10/08/19] Allergy/AdvReac Type Severity Reaction Status Date / Time Penicillins Allergy Unknown Verified 03/09/20 13:57 Surgical History (Updated 12/24/21 @ 09:01 by Sofia Pisano) S/P TURP Social History Smoking Status: Former smoker ROS ROS ED Constitutional Constitutional ED: Reports frequent falls; Denies anorexia, body ache(s), chills, fatigue, fever(s) or headache(s) Eyes Eyes: Denies change in vision or diplopia ENT ENT ED: Denies ear pain, epistaxis, facial pain or rhinorrhea Cardiovascular Cardiovascular: Denies chest pain or palpitations Respiratory/Chest Respiratory/Chest: Reports cough; Denies dyspnea or dyspnea on exertion Gastrointestinal Gastrointestinal: Denies abdominal pain, diarrhea, melena, nausea or vomiting Genitourinary Genitourinary ED: Denies dysuria or hematuria Musculoskeletal Musculoskeletal: Denies back pain, extremity pain or neck pain Integumentary Reports Abrasions; Denies abscess, laceration or rash Neurologic Neurologic: Denies confusion, headache(s), paresthesias or weakness EXAM Physical Exam Const Vital Signs: 12/24/21 08:42 12/24/21 08:46 12/24/21 12:19 Temperature 98.6 F Temperature Source Oral Pulse Rate 110 H 119 H 88 Respiratory Rate 16 16 15 Blood Pressure 116/69 133/67 H 125/79 H Blood Pressure Mean 84 89 94 Pulse Ox 98 98 97 Oxygen Delivery Method Room Air Room Air Room Air Positive well nourished and well developed General Appearance ED: well developed and NAD HEENT Reports TM's clear and nasal mucous membranes and turbinates normal HEENT Narrative: Minor contusion right upper cheek without any tenderness or facial instability atraumatic Face and Sinus: Negative for facial tenderness Tympanic Membrane ED: Yes TM's clear Eyes PERRL and EOMs intact bilaterally Eyes Narrative: No pain with extraocular movements, no entrapment Visual Acuity: other Other Details: no entrapment or pain with extraocular movements Neck full ROM and supple General: Negative for tenderness Chest Wall inspection of chest normal and palpation of chest normal Chest: symmetrical chest wall rise; Negative for crepitus or tenderness Resp normal respiratory effort and clear to auscultation bilaterally Percussion: other equal BS bilat Cardio no murmurs Rate: regular rate Rhythm: regular rhythm GI normal to inspection, nondistended, normoactive bowel sounds, soft to palpation and non-tender Back/Spine normal ROM Cervical Spine: Negative for cervical spine tenderness Thoracic Spine / Upper Back: Negative for thoracic spinal tenderness Lumbar Spine / Lower Back: Negative for lumbar spinal tenderness Extremity normal to inspection and full ROM General Extremety ED: Negative for tenderness Neuro oriented x3, CN's II-XII intact bilaterally, moves all extremities, no focal motor deficits and no sensory deficits noted Vickey Coma Scale: document GCS findings Spontaneous Obeys Commands Oriented 15 Sensorium / Orientation: awake and alert Psych mental status grossly normal and thought process normal Skin Skin Narrative: Abrasion just below the right eye on the cheek, no laceration. No tenderness. No other signs of trauma. Lesions: no lesions Rashes: no rashes MDM MDM MDM Narrative Medical decision making narrative: Patient does not have any apparent injuries except for the abrasion on his face that appears to have mostly been from his glasses. He was observed here for a couple of hours while we ran a Covid test which was negative, he developed no symptoms of a head injury or facial/eye pain. He was ambulatory without any pain, so he was discharged in stable condition. Discharge Plan Triage Chief Complaint: Fall ED Provider: Michael Sims Dx/Rx/DC Orders Clinical Impression: Fall due to slipping on ice or snow, Abrasion of face, Cough Instructions: ED Fall Prevention Prescriptions: No Action risperidone 1 MG tablet 1 mg PO QHS RF: 0 Primary Care Provider: Filemon Quintero Referrals: Filemon Quintero MD [Primary Care Provider] - As Needed Disposition Disposition: Home, Self Care
--- NOTE | 2021-12-24 11:12 | ED.RN ---
pt attempted to call friend for update but no answer. pt resting in bed with chart up for reeval. denies any needs.
[2021-12-24 12:19] VITALS: BP 125/79; PULSE 88; RESP 15; O2SAT 97
--- NOTE | 2021-12-25 11:35 | CASEMGMT ---
MICHELLE CHUNG ED follow-up: MICHELLE CHUNG placed call to patient's telephone number listed on demographics, patient answered. Patient reports he is feeling fine and has no pain or injury. Patient states he has no issues with mobility and denies needs. Patient denies questions or concerns. MICHELLE Carranza CM
== END 2021-12-24 13:19 | disposition home or self-care (01) ==
PROVIDERS: Emergency Provider Emergency Medicine; PCP Family Medicine; Visit Provider Emergency Medicine
DX: S00.81XA Abrasion of other part of head, initial encounter (principal); S00.83XA Contusion of other part of head, initial encounter; R05.9 Cough, unspecified; F32.A Depression, unspecified; F41.9 Anxiety disorder, unspecified; W00.0XXA Fall on same level due to ice and snow, initial encounter; Z91.81 History of falling; Y93.01 Activity, walking, marching and hiking; Y92.9 Unspecified place or not applicable; Z79.899 Other long term (current) drug therapy; Z87.891 Personal history of nicotine dependence
CPT/HCPCS: 87426; 99283

== ENCOUNTER 2022-04-26 10:06 | Emergency (ER) | payer MEDICARE, MEDICAID, SELFPAY ==
[2022-04-26 10:07] VITALS: BP 105/89; PULSE 72; RESP 16; TEMP 36.5; O2SAT 97; BMI 19.8
--- NOTE | 2022-04-26 10:23 | EKG12_ITS ---
Test Reason : WEAKNESS Blood Pressure : / mmHG Vent. Rate : 070 BPM Atrial Rate : 070 BPM P-R Int : 138 ms QRS Dur : 080 ms QT Int : 380 ms P-R-T Axes : 051 073 032 degrees QTc Int : 410 ms Normal sinus rhythm with sinus arrhythmia ST & T wave abnormality, consider anterior ischemia Abnormal ECG Confirmed by DEEPAK KASPER, MATEUS ([id number]), publishing editor CAR GUZMAN ([id number]) on 04/29/2022 1:11:07 PM Referred By: JESI Confirmed By:MATEUS SOTELO MD
[2022-04-26 10:41] LABS: Absolute Lymphocyte Count 0.69 X10^3/uL (0.83-4.51); Absolute Neutrophil Count 6.2 X10^3/uL (2.0-7.7); Basophil# 0.02 X10^3/uL; Basophil% 0.3 % (0-1); Eosinophil# 0.02 X10^3/uL; Eosinophils% 0.3 % (0-5); Hematocrit 46.9 % (40-54); Hemoglobin 15.5 g/dL (13.0-16.5); Lymphocyte # 0.69 X10^3/ul (0.83-4.51); Lymphocyte % 9.5 % (19-41); Mean Corpuscular Hgb 32.9 pg (27.0-32.0); Mean Corpuscular Volume 99.6 fL (80-94); Mean Platelet Vol. 9.8 fl (6.2-12.0); Monocyte# 0.33 X10^3/uL; Monocyte% 4.5 % (0-10); NRBC Flagged by Analyzer 0 % (0-5); Neutrophil # 6.17 X10^3/uL (2.7-7.7); Platelet Count 185 K/mm3 (150-450); RBC Distribution Width CV 13.3 % (11.6-14.6); Red Blood Count 4.71 M/mm3 (4.6-6.2); White Blood Count 7.3 K/mm3 (4.4-11.0)
[2022-04-26] MEDS: 0.9% Normal Saline 1,000 ML 1000 ML IV (10:50)
--- NOTE | 2022-04-26 10:50 | RAD_ITS ---
STUDY: X-RAY CHEST REASON FOR EXAM: Male, 71 years old. Near syncope TECHNIQUE: Single AP portable upright view of the chest. COMPARISON: Portable AP upright chest x-ray 10/09/2019 FINDINGS: There is stable stranding/scarring in the right upper lung zone. A few curvilinear and possible micronodular densities as well as slight apical thickening also seen in the left apex. No new pulmonary infiltrate or mass. There is no demonstrated pleural abnormality. Normal size heart. Normal mediastinum. There is stable cephalad retraction of the nayeli. Normal visualized pulmonary arteries. Normal visualized aortic arch and descending thoracic aorta. There are stable degenerative changes of the visualized thoracic spine. Normal visualized ribs, clavicles, and shoulders. There is no demonstrated abnormality of the visualized soft tissue structures of the upper abdomen. RAD/Chest 1 View (Portable) IMPRESSION: Stable biapical pleural-parenchymal scarring. No acute cardiopulmonary disease. Electronically Signed: Noam Escobar MD at 11:11 EDT ,
[2022-04-26 10:55] VITALS: BP 110/76; BP 121/66; PULSE 71; PULSE 78
[2022-04-26 10:56] LABS: AST(SGOT) 24 U/L (15-37); Alanine Aminotransfer ALT/SGPT 29 U/L (16-61); Albumin, Serum 3.2 g/dL (3.2-5.0); Alkaline Phosphatase 127 U/L (45-117); Bilirubin, Direct 0.65 mg/dL (0.00-0.30); Globulin 3.7 g/dL (2.2-4.2); Lipase 134 U/L (73-393); Magnesium 2.2 mg/dL (1.6-2.6); Protein, Total 6.9 g/dL (6.4-8.2); Troponin-I HS 7 pg/mL (3.0-78.0)
--- NOTE | 2022-04-26 11:05 | EDS_ITS ---
HPI History of Present Illness Chief Complaint: Weakness Informant: patient, friend and EMS Narrative Narrative: 71-year-old male presenting to the emergency room following a near syncopal episode. The patient has been not eating well for approximately a year due to his dentures. He tells me that there is nothing that can be done to fix his dentures. However he has not gone to the dentist. He has lost about 6 to 7 pounds in the past month. Today he ate 1 bite of chicken salad and a small amount of oatmeal. He is in the process of moving to an assisted living center and was starting to pack up some of his things today. While carrying a chair he became diaphoretic and looks as if he might pass out. His friend helped him get sitting and EMS was called who noted hypotension. Patient states that he generally just feels weak. He states he drinks regular Coke but no water. [facility] Medical History Anxiety Depression Former smoker GERD (gastroesophageal reflux disease) Hypertension Home Medications risperidone 1 mg PO QHS 10/09/19 [History Last Taken 10/08/19] mirtazapine 15 mg PO QHS 04/26/22 [History Last Taken Unknown] omeprazole 20 mg PO DAILY 04/26/22 [History Last Taken Unknown] Allergy/AdvReac Type Severity Reaction Status Date / Time Penicillins Allergy Unknown Verified 04/26/22 10:10 Surgical History S/P TURP Social History (Updated 04/26/22 @ 11:[address] Jeremy Uriostegui DO) Smoking Status: Former smoker substance use type: does not use ROS ROS ED ROS Narrative Generalized fatigue Constitutional Constitutional ED: Denies chills, fever(s) or weight loss Eyes Eyes: Denies change in vision or diplopia ENT ENT ED: Denies ear pain, rhinorrhea or sore throat Cardiovascular Cardiovascular: Reports other Details: Near syncope ; Denies chest pain, orthopnea, palpitations or racing heartbeat Respiratory/Chest Respiratory/Chest: Denies cough, dyspnea or orthopnea Gastrointestinal Gastrointestinal: Denies abdominal pain, diarrhea, nausea or vomiting Genitourinary Genitourinary ED: Denies dysuria, hematuria or urinary frequency Musculoskeletal Musculoskeletal: Denies arthralgias or myalgias Integumentary Denies abscess or rash Neurologic Neurologic: Denies headache(s) or weakness Psychiatric Psychiatric: Reports anxiety; Denies depression, suicidal ideation or suicidal thoughts Endocrine Endocrinology: Denies polydipsia, polyphagia or polyuria Allergic/Immunologic Allergic/Immunologic ED: Denies mouth swelling, tongue swelling or urticaria EXAM Physical Exam Const Vital Signs: 04/26/22 10:07 04/26/22 10:14 04/26/22 10:55 Temperature 97.7 F L Temperature Source Oral Pulse Rate 72 Pulse Rate [Sitting (for 1 minute prior to obtaining)] 78 Pulse Rate [Standing (for 1 minute prior to obtaining)] 71 Respiratory Rate 16 Respiratory Effort Normal Non-Labored Blood Pressure 105/89 H Blood Pressure [Sitting (for 1 minute prior to obtaining)] 110/76 Blood Pressure [Standing (for 1 minute prior to obtaining)] 121/66 H Blood Pressure Mean 94 Blood Pressure Mean [Sitting (for 1 minute prior to obtaining)] 87 Blood Pressure Mean [Standing (for 1 minute prior to obtaining)] 84 Pulse Ox 97 Oxygen Delivery Method 04/26/22 13:14 Temperature Temperature Source Pulse Rate 73 Pulse Rate [Sitting (for 1 minute prior to obtaining)] Pulse Rate [Standing (for 1 minute prior to obtaining)] Respiratory Rate 16 Respiratory Effort Blood Pressure 137/88 H Blood Pressure [Sitting (for 1 minute prior to obtaining)] Blood Pressure [Standing (for 1 minute prior to obtaining)] Blood Pressure Mean 104 Blood Pressure Mean [Sitting (for 1 minute prior to obtaining)] Blood Pressure Mean [Standing (for 1 minute prior to obtaining)] Pulse Ox 97 Oxygen Delivery Method Room Air Positive well developed and cachectic General Appearance ED: well developed and cachectic Nutritional Appearance: cachectic HEENT Reports normocephalic, head/scalp atraumatic, TM's clear and moist mucous membranes Negative for trauma Tympanic Membrane ED: Yes TM's clear Eyes PERRL and EOMs intact bilaterally Neck no lymphadenopathy, supple and no JVD Resp normal respiratory effort and clear to auscultation bilaterally Cardio regular rate, regular rhythm and no murmurs GI normal to inspection, nondistended, normoactive bowel sounds and non-tender Palpation: soft Back/Spine no CVA tenderness and normal ROM Extremity normal to inspection General Extremety ED: Negative for edema General Extremity: Negative for edema Neuro oriented x3 and CN's II-XII intact bilaterally Sensorium / Orientation: alert Motor Exam: strength 5/5 throughout Psych mental status grossly normal Mood & Affect: Negative for depressed or tearful Skin no rashes or lesions noted and no wounds MDM MDM MDM Narrative Medical decision making narrative: My interpretation of the chest x-ray is no acute process. CBC shows a white count 7.3 hemoglobin 15.5 normal platelets. BMP with a creatinine of 1.41 otherwise electrolytes are in check glucose is 155 total protein albumin and globulin were normal lactic acid is normal. Urinalysis is normal. Patient's had no events on the monitor. He has had no hypotension since he has been here. He did receive a liter of IV fluids. Patient may be able to go to assisted living today. We will have to wait and see what their answer is. But I believe the patient is okay to go home. I advised him to take it easy today to please get with his dentist to discuss ways that they can help him be able to eat better. He would most likely benefit from a nutrition evaluation. Lab Data Attestation: I reviewed the patient's lab results. Labs: Laboratory Results - last 24 hr 04/26/22 04/26/22 04/26/22 10:20 10:20 10:20 WBC 7.3 RBC 4.71 Hgb 15.5 Hct 46.9 MCV 99.6 H MCH 32.9 H MCHC 33.0 RDW Std Deviation 49.0 H RDW Coeff of Long 13.3 Plt Count 185 MPV 9.8 Immature Gran % (Auto) 0.400 Neut % (Auto) 85.0 H Lymph % (Auto) 9.5 L [place] % (Auto) 4.5 Eos % (Auto) 0.3 Baso % (Auto) 0.3 Absolute Neuts (auto) 6.2 Absolute Lymphs (auto) 0.69 L Nucleated RBC % 0 Sodium 141 Potassium 3.6 Chloride 108 H Carbon Dioxide 26.0 Anion Gap 7 BUN 18 Creatinine 1.41 H Estim Creat Clear Calc 35.70 Est GFR (MDRD) Af Amer 63 Est GFR (MDRD) Non-Af 52 L BUN/Creatinine Ratio 12.8 Glucose 155 H Lactic Acid Calcium 8.8 Magnesium 2.2 Total Bilirubin 1.50 H Direct Bilirubin 0.65 H AST 24 ALT 29 Alkaline Phosphatase 127 H Troponin I High Sens 7 Total Protein 6.9 Albumin 3.2 Globulin 3.7 Lipase 134 Urine Color Urine Clarity Urine pH Ur Specific [place] Urine Protein Urine Glucose (UA) Urine Ketones Urine Occult Blood Urine Nitrite Urine Bilirubin Urine Urobilinogen Ur Leukocyte Esterase Urine RBC Urine WBC Ur Squamous Epith Cells Urine Bacteria Urine Mucus 04/26/22 04/26/22 10:45 10:48 WBC RBC Hgb Hct MCV MCH MCHC RDW Std Deviation RDW Coeff of Long Plt Count MPV Immature Gran % (Auto) Neut % (Auto) Lymph % (Auto) [place] % (Auto) Eos % (Auto) Baso % (Auto) Absolute Neuts (auto) Absolute Lymphs (auto) Nucleated RBC % Sodium Potassium Chloride Carbon Dioxide Anion Gap BUN Creatinine Estim Creat Clear Calc Est GFR (MDRD) Af Amer Est GFR (MDRD) Non-Af BUN/Creatinine Ratio Glucose Lactic Acid 1.9 Calcium Magnesium Total Bilirubin Direct Bilirubin AST ALT Alkaline Phosphatase Troponin I High Sens Total Protein Albumin Globulin Lipase Urine Color Yellow Urine Clarity Clear Urine pH 6.0 Ur Specific [place] 1.025 Urine Protein 15 H Urine Glucose (UA) Normal Urine Ketones 50 H Urine Occult Blood 10 H Urine Nitrite Negative Urine Bilirubin 1 H Urine Urobilinogen 4 H Ur Leukocyte Esterase 25 H Urine RBC 0 SEEN Urine WBC 0 SEEN Ur Squamous Epith Cells 0 SEEN Urine Bacteria 0 SEEN Urine Mucus 0 SEEN Radiography Diagnostic Testing: Clinical Impression(s) from Imaging Studies Chest X-Ray 04/26/22 10:50 IMPRESSION: Stable biapical pleural-parenchymal scarring. No acute cardiopulmonary disease. Electronically Signed: Noam Escobar MD at 11:11 EDT , EKG Initial EKG: Attestation: I personally reviewed and interpreted this EKG as follows: Comments: Sinus rhythm with a ventricular rate of 70 bpm. Discharge Plan Triage Chief Complaint: Weakness ED Provider: Jeremy Uriostegui Dx/Rx/DC Orders Clinical Impression: Near syncope, Malnutrition Instructions: 5 Steps for Eating Healthier, Causes of Syncope Prescriptions: No Action risperidone 1 MG tablet 1 mg PO QHS RF: 0 omeprazole 20 mg capsule,delayed release(DR/EC) 20 mg PO DAILY RF: 0 mirtazapine 15 mg tablet 15 mg PO QHS RF: 0 Primary Care Provider: Filemon Quintero Referrals: Filemon Quintero MD [Primary Care Provider] - As soon as possible Disposition Disposition: Home, Self Care
[2022-04-26 11:10] LABS: Bacteria 0 SEEN /hpf (None Seen); Mucous, Urine 0 SEEN /hpf (<or=2+); Red Blood Cells-Urine 0 SEEN /hpf (0-5); Squamous Epithelial Cells - UA 0 SEEN /hpf (0-5); White Blood Cells 0 SEEN /hpf (0-5)
[2022-04-26 11:24] LABS: Color, Urine Yellow (Yellow); Glucose, Dipstick Normal (Normal); Ketone-Dipstick 50 mg/dl (Negative); Leukocyte Esterase-Dipstick 25 /ul (Negative); Nitrite-Dipstick Negative (Negative); Occult Blood-Urine 10 /ul (Negative); Protein-Dipstick 15 mg/dl (Negative); Specific Gravity, Urine 1.025 (1.002-1.030); Urine Clarity Clear (Clear); Urine Urobilinogen 4 mg/dl (Normal)
[2022-04-26 11:25] LABS: Urine Bilirubin Dipstick 1 mg/dL (Negative)
[2022-04-26 11:51] LABS: Lactic Acid 1.9 mmol/L (0.4-1.9)
--- NOTE | 2022-04-26 12:04 | ED.RN ---
PT AMBULATED WITHOUT DIFFICULTY
[2022-04-26 12:52] LABS: Anion Gap 7 (5-15); BUN 18 mg/dL (7-18); BUN/Creat Ratio 12.8 RATIO (10-20); Calcium,Total 8.8 mg/dL (8.5-10.1); Chloride 108 mmol/L (98-107); Creatinine, Serum 1.41 mg/dL (0.70-1.30); EST Glomerular Filtration Rate 52 mL/min (>60); Est Glom Filt Rate - Afr Amer 63 mL/min (>60); Glucose 155 mg/dL (74-106); Potassium 3.6 mmol/L (3.5-5.1); Sodium Level 141 mmol/L (136-145)
[2022-04-26 13:14] VITALS: BP 137/88; PULSE 73; RESP 16; O2SAT 97
== END 2022-04-26 13:50 | disposition home or self-care (01) ==
PROVIDERS: Emergency Provider Emergency Medicine; PCP Family Medicine; Visit Provider Emergency Medicine
DX: R55 Syncope and collapse (principal); E46 Unspecified protein-calorie malnutrition; Z87.891 Personal history of nicotine dependence; I10 Essential (primary) hypertension; F41.9 Anxiety disorder, unspecified; F32.A Depression, unspecified; K21.9 Gastro-esophageal reflux disease without esophagitis; Z79.899 Other long term (current) drug therapy; Z68.1 Body mass index [BMI] 19.9 or less, adult
CPT/HCPCS: 71045; 80048; 80076; 81001; 83605; 83690; 83735; 84484; 85025; 93005; 96360; 96361; 99285; A4216